=== PATIENT | female | born 1990 | race African-American/Black ===

== ENCOUNTER → 2020-12-30 15:24 | Outpatient (BNVA) | payer OTHER, SELFPAY | PROVIDERS: PCP Family Medicine; Referring Provider Family Medicine; Visit Provider Surgery ==

== ENCOUNTER → 2021-02-17 09:14 | Outpatient (BNVA) | payer OTHER, SELFPAY | PROVIDERS: PCP Family Medicine; Visit Provider Surgery ==

== ENCOUNTER → 2021-02-18 08:37 | Outpatient (BNVA) | payer OTHER, SELFPAY | PROVIDERS: PCP Family Medicine; Visit Provider Physician Assistant ==

== ENCOUNTER 2021-02-20 09:14 | Outpatient (REF) | payer OTHER, SELFPAY ==
--- NOTE | ~2021-02-20 | XR_ITS ---
EXAMINATION: XR CHEST CLINICAL INFORMATION: Obesity COMPARISON: None TECHNIQUE: Two-view chest FINDINGS: The cardiac and mediastinal contours are normal. There is a 4 mm nodule projecting over the left upper lobe. This overlies the left anterior second rib and could represent a bone island in the rib as well. The lungs are otherwise clear. There is no pleural effusion or pneumothorax. Bony structures are unremarkable. XR/XR chest 2V IMPRESSION: Question small 4 mm left upper lobe nodule.
--- NOTE | 2021-02-20 09:32 | ECG_ITS ---
Test Reason : E66.9 Blood Pressure : / mmHG Vent. Rate : 094 BPM Atrial Rate : 094 BPM P-R Int : 146 ms QRS Dur : 084 ms QT Int : 358 ms P-R-T Axes : 047 036 038 degrees QTc Int : 447 ms Normal sinus rhythm Normal ECG No previous ECGs available Referred By: Marco Antonio Chowdhury Electronically Signed By:LANCE ESPINOZA
[2021-02-20 09:36] LABS: MANUAL DIFF FLAG NO
[2021-02-20 10:43] LABS: Basophils Percent Auto 0.4 % (0-2); Eosinophils Absolute Auto 0.1 X10*3/uL (0.0-0.4); Eosinophils Percent Auto 1.7 % (0-4); Hematocrit 38.4 % (37-47); Hemoglobin 12.7 g/dl (12.0-16.0); Imm Gran Abs Auto 0.03 X10*3/uL (0.00-0.03); Imm Gran Pct Auto 0.4 % (0.0-0.4); Lymphocytes Absolute Auto 3.1 X10*3/uL (1.2-4.9); Lymphocytes Percent Auto 45.5 % (20-40); Mean Corpuscular HGB Conc 33.1 g/dl (31.0-35.0); Mean Corpuscular Volume 84.6 fL (80-98); Monocytes Absolute Auto 0.3 X10*3/uL (0.1-1.2); Monocytes Percent Auto 4.9 % (2-11); Neutrophils Absolute Auto 3.2 X10*3/uL (2.0-8.3); Neutrophils Percent Auto 47.1 % (45-73); Platelet Count 340 X10*3/uL (160-400); Red Blood Count 4.54 X10*6/uL (4.20-5.50); Red Cell Distribution Width 12.8 % (11.0-16.0); White Blood Count 6.9 X10*3/uL (4.8-10.8)
[2021-02-20 11:00] LABS: Estimated Average Glucose 108 mg/dL; Hemoglobin A1c % 5.4 %
[2021-02-20 11:09] LABS: Alanine Aminotransferase 25 U/L (0-31); Albumin Level 4.2 g/dL (3.5-5.0); Alkaline Phosphatase 60 U/L (39-117); Anion Gap 11 (12-20); Aspartate Amino Transferase 18 U/L (5-31); Bilirubin Total 0.5 mg/dL (0.0-1.0); Blood Urea Nitrogen 17 mg/dL (9-16); C Reactive Protein 2.62 mg/dL (< or = 0.50); Calcium 9.6 mg/dL (8.4-10.2); Carbon Dioxide 27 mmol/L (22-29); Chloride 106 mmol/L (96-108); Cholesterol 248 mg/dL; Estimated Glomerular Filt Rate > 60; Glucose Random 110 mg/dL (60-115); HDL Cholesterol 69 mg/dL; Iron 54 mcg/dL (30-160); LDL Cholesterol Calculated 165 mg/dl; Percent Iron Saturation 14 % (15-50); Potassium 4.3 mmol/L (3.3-5.1); Sodium 140 mmol/L (135-145); Total Iron Binding Capacity 389 mcg/dL (228-428); Total Protein 7.8 g/dL (6.5-8.0); Triglycerides 74 mg/dL; Unsaturated Iron Binding 335 ug/dL
[2021-02-20 11:15] LABS: Ferritin 57 ng/mL (10-122); TSH reflex Free T4 0.62 uIU/mL (0.32-4.0); Vitamin D 25-OH Total 22.6 ng/mL (>30)
[2021-02-20 11:26] LABS: Folate 13.8 ng/mL (> or = 4.0); Vitamin B12 330 pg/mL (200-900)
[2021-02-20 11:45] LABS: Insulin 22 uU/mL (2-29)
[2021-02-21 12:50] LABS: Calcium (PTHI) 9.6 mg/dL (8.6-10.2); PTHI 69 pg/mL (14-64)
[2021-02-21 13:34] LABS: H Pylori Breath Test Negative (Negative)
[2021-02-23 15:41] LABS: Zinc 69 mcg/dL (60-130)
[2021-02-26 04:32] LABS: Vitamin A 46 mcg/dL (38-98)
[2021-02-26 12:56] LABS: Vitamin B1 22 nmol/L (8-30)
== END 2021-02-20 09:15 | disposition home or self-care (01) ==
LOC: HO.XRAY 09:14
PROVIDERS: PCP Family Medicine; Visit Provider Surgery
DX: E66.9 Obesity, unspecified (principal); Z68.39 Body mass index [BMI] 39.0-39.9, adult; R73.03 Prediabetes
CPT/HCPCS: 36415; 71046; 80053; 80061; 82306; 82607; 82728; 82746; 83013; 83036; 83525; 83540; 83970; 84425; 84443; 84590; 84630; 85025; 86140; 93005

== ENCOUNTER → 2021-03-07 16:11 | Outpatient (BNVA) | payer OTHER, SELFPAY | PROVIDERS: PCP Family Medicine; Referring Provider Family Medicine; Visit Provider Physician Assistant Surgical ==

== ENCOUNTER → 2021-03-12 08:07 | Outpatient (BNVA) | payer OTHER, SELFPAY | PROVIDERS: PCP Family Medicine; Visit Provider Surgery ==

== ENCOUNTER → 2021-03-14 08:21 | Outpatient (BNVA) | payer OTHER, SELFPAY | PROVIDERS: PCP Family Medicine; Visit Provider Dietitian, Registered | DX: E66.9 Obesity, unspecified (principal); Z68.39 Body mass index [BMI] 39.0-39.9, adult | CPT/HCPCS: 97802 ==

== ENCOUNTER → 2021-03-19 15:53 | Outpatient (BNVA) | payer OTHER, SELFPAY | PROVIDERS: PCP Family Medicine; Visit Provider Physician Assistant ==

== ENCOUNTER 2021-03-25 09:23 | Outpatient (REF) | payer OTHER, SELFPAY ==
--- NOTE | ~2021-03-25 | CT_ITS ---
EXAMINATION: CT CHEST WITH CONTRAST CLINICAL INFORMATION: Follow-up pulmonary nodule COMPARISON: Previous chest x-ray 02/20/2021 TECHNIQUE: Multidetector volumetric CT imaging of the chest was obtained after the administration of 65 mL of Omnipaque 350 intravenous contrast without immediate adverse reactions. Axial MIP volume rendering provided. Sagittal and coronal reformatted images were obtained. This CT examination was performed using dose optimization techniques as appropriate, variously including the following: *Automated exposure control *Adjustment of mA and/or kV according to patient size (this includes techniques or standardized protocols for targeted exams where dose is matched to indication/reason for exam; i.e. extremities or head) *Use of iterative reconstruction technique DLP: 321 mGy-cm FINDINGS: EMERGENCY ROOM REGISTERED NURSE: Unremarkable LUNGS: The lungs are clear. No pulmonary nodule is seen. MEDIASTINUM: The mediastinum is normal. PLEURA: There is no pleural effusion. No pleural mass or thickening. AXILLA: No lymphadenopathy. UPPER ABDOMEN: The liver is slightly low in attenuation suggestive of fatty infiltration. OSSEOUS STRUCTURES: Unremarkable. CT/CT chest w con IMPRESSION: No pulmonary nodule seen. Mild fatty infiltration of the liver.
[2021-03-25] MEDS: iohexoL 350 MG/ML 100 ML INFUS..BTL IV (11:03)
== END 2021-03-25 09:24 | disposition home or self-care (01) ==
LOC: HO.CT 09:23
PROVIDERS: Absent Provider Physician Assistant Surgical; PCP Family Medicine; Visit Provider Surgery
DX: R91.1 Solitary pulmonary nodule (principal)
CPT/HCPCS: 71260; Q9967

== ENCOUNTER 2021-04-02 09:37 | Outpatient (REF) | payer OTHER, SELFPAY ==
--- NOTE | ~2021-04-02 | US_ITS ---
EXAMINATION: US COMPLETE ABDOMEN WITH LIVER ELASTOGRAPHY CLINICAL INFORMATION: Obesity. COMPARISON: None. TECHNIQUE: Real-time imaging of the abdominal viscera. Noninvasive ultrasound liver fibrosis assessment is performed using Taylor ElastPQ point quantification shear wave elastography (pSWE) with a C5-2 MHz transducer. Multiple elastography samples are obtained. FINDINGS: PANCREAS: Normal. The visualized pancreatic head and body are normal in appearance. The remainder of the pancreas is obscured from visualization by the overlying bowel gas. ABDOMINAL AORTA: The proximal, middle, and distal aortic segments are normal in caliber. INFERIOR VENA CAVA: Visualized portions are normal. LIVER: The liver demonstrates normal size, contour and echogenicity. No focal lesion or intrahepatic biliary duct dilatation. The right lobe measures 17.0 cm in length. The left lobe measures 11.2 cm in length. Portal flow is hepatopetal. Shear wave liver elastography median stiffness is 1.27 m/s (reference: normal median stiffness is 1.3 m/s or less). IQR/median stiffness to assess sampling precision is 0.06 (reference: good quality data set is IQR/median stiffness of 0.15 or less). GALLBLADDER: Normal. The gallbladder is physiologically distended without evidence of stones, sludge, polyps, wall thickening or pericholecystic fluid. COMMON BILE DUCT: Normal in caliber measuring 0.38 cm in diameter. RIGHT KIDNEY: Normal. No hydronephrosis. No renal calculi or focal parenchymal lesions. The kidney measures 10.1 cm in maximum dimension. LEFT KIDNEY: Normal. No hydronephrosis. No renal calculi or focal parenchymal lesions. The kidney measures 10.7 cm in maximum dimension. SPLEEN: Normal. The spleen measures 10.1 cm in maximum dimension. FREE FLUID: None. US/US abdomen comp w elastography IMPRESSION: 1. Unremarkable complete abdomen ultrasound. 2. Liver elastography: Median liver stiffness 1.27 m/s. High probably normal. REFERENCE: Society of Radiologists in Ultrasound Liver Stiffness Thresholds (2020): LIVER STIFFNESS THRESHOLDS: *Liver Stiffness equal or less than 1.3 m/s: High probability of being normal. *Liver Stiffness less than 1.7 m/s: In the absence of other known clinical signs, rules out compensated advanced chronic liver disease. *Liver Stiffness 1.7-2.1 m/s: Suggestive of compensated advanced chronic liver disease but need further test for confirmation. *Liver Stiffness over 2.1 m/s: Rules in compensated advanced chronic liver disease. *Liver Stiffness over 2.4 m/s: Suggestive of clinically significant portal hypertension. QUALITY OF DATA SET: *IQR/Median value equal or less than 0.15 implies a quality data set. *IQR/Median value over 0.15 implies a poor quality data set. SIGNIFICANT CHANGE FROM PRIOR EXAM: Significant change if liver stiffness measurement is 10% or greater from prior exam. OTHER CONSIDERATIONS: The stage of liver fibrosis may be overestimated in the setting of acute hepatitis, liver inflammation, elevated liver function tests, hepatic vascular congestion, obstructive cholestasis, non-fasting state, and infiltrative diseases such as amyloidosis and lymphoma. In some patients with NAFLD, the liver stiffness thresholds for compensated advanced chronic liver disease may be lower. In causes other than viral hepatitis and NAFLD, liver stiffness thresholds are not well established.
--- NOTE | ~2021-04-02 | FL_ITS ---
EXAMINATION: FL UPPER GI AIR-CONTRAST STUDIES CLINICAL INFORMATION: Obesity. COMPARISON: None. TECHNIQUE: Routine upper GI air-contrast study was performed. FINDINGS: Following oral administration of thick barium and effervescent granules, there is normal propagation bolus from the oral cavity through the pharynx and esophagus and into the stomach without any evidence of obstruction, narrowing or stricture. On placing patient supine and prone lying, there is mild gastroesophageal reflux without hiatal hernia. The rest the visualized stomach, duodenal bulb and the sweep are normal. The mucosal pattern of the stomach and the duodenal sweep is normal. FLUOROSCOPY TIME: 1.9 minutes. DOSE AREA PRODUCT: 32.8 uGy-m2 (microgray-meter squared). FL/FL upper GI series IMPRESSION: Minimal gastroesophageal reflux without hiatal hernia. The rest of the upper GI exam is unremarkable.
== END 2021-04-02 09:38 | disposition home or self-care (01) ==
LOC: HO.XRAY 09:37
PROVIDERS: PCP Family Medicine; Visit Provider Surgery
DX: E66.9 Obesity, unspecified (principal); Z68.39 Body mass index [BMI] 39.0-39.9, adult; R73.03 Prediabetes
CPT/HCPCS: 74240; 76705; 76981

== ENCOUNTER → 2021-04-28 08:08 | Outpatient (BNVA) | payer OTHER, SELFPAY | PROVIDERS: PCP Family Medicine; Visit Provider Surgery ==

== ENCOUNTER → 2021-05-01 09:09 | Outpatient (BNVA) | payer OTHER, SELFPAY | PROVIDERS: PCP Family Medicine; Referring Provider Family Medicine; Visit Provider Physician Assistant ==

== ENCOUNTER → 2021-05-14 09:17 | Outpatient (BNVA) | payer OTHER, SELFPAY | PROVIDERS: PCP Family Medicine; Referring Provider Family Medicine; Visit Provider Physician Assistant Surgical ==

== ENCOUNTER → 2021-05-27 08:01 | Outpatient (BNVA) | payer OTHER, SELFPAY | PROVIDERS: PCP Family Medicine; Visit Provider Surgery ==

== ENCOUNTER → 2021-06-12 15:26 | Outpatient (BNVA) | payer OTHER, SELFPAY | PROVIDERS: PCP Family Medicine; Referring Provider Family Medicine; Visit Provider Physician Assistant ==

== ENCOUNTER → 2021-06-23 08:11 | Outpatient (BNVA) | payer OTHER, SELFPAY | PROVIDERS: PCP Family Medicine; Visit Provider Surgery ==

== ENCOUNTER → 2021-07-03 15:40 | Outpatient (BNVA) | payer OTHER, SELFPAY | PROVIDERS: PCP Family Medicine; Visit Provider Physician Assistant ==

== ENCOUNTER → 2021-07-18 09:58 | Outpatient (BNVA) | payer OTHER, SELFPAY | PROVIDERS: PCP Family Medicine; Visit Provider Physician Assistant Surgical ==

== ENCOUNTER → 2021-07-25 08:17 | Outpatient (BNVA) | payer OTHER, SELFPAY | PROVIDERS: PCP Family Medicine; Visit Provider Surgery ==

== ENCOUNTER → 2021-08-14 12:24 | Outpatient (BNVA) | payer OTHER, SELFPAY | PROVIDERS: PCP Family Medicine; Visit Provider Physician Assistant Surgical ==

== ENCOUNTER → 2021-08-14 12:24 | Outpatient (BNVA) | payer OTHER, SELFPAY | PROVIDERS: PCP Family Medicine; Visit Provider Physician Assistant Surgical | DX: Z13.89 Encounter for screening for other disorder (principal) ==

== ENCOUNTER → 2021-08-20 14:57 | Outpatient (BNVA) | payer OTHER, SELFPAY | PROVIDERS: PCP Family Medicine; Referring Provider Family Medicine; Visit Provider Surgery | DX: Z13.89 Encounter for screening for other disorder (principal) ==

== ENCOUNTER 2021-08-21 13:34 | Inpatient (IN) | payer OTHER, MEDICAID, SELFPAY ==
[2021-08-08 07:57] LABS: MANUAL DIFF FLAG NO
[2021-08-08 08:07] LABS: Basophils Percent Auto 0.4 % (0-2); Eosinophils Absolute Auto 0.1 X10*3/uL (0.0-0.4); Eosinophils Percent Auto 2.6 % (0-4); Hematocrit 39.2 % (37.0-47.0); Hemoglobin 12.6 g/dl (12.0-16.0); Imm Gran Abs Auto 0.02 X10*3/uL (0.00-0.03); Imm Gran Pct Auto 0.4 % (0.0-0.4); Lymphocytes Absolute Auto 2.2 X10*3/uL (1.2-4.9); Lymphocytes Percent Auto 42.6 % (20-40); Mean Corpuscular HGB Conc 32.1 g/dl (31.0-35.0); Mean Corpuscular Hemoglobin 27.9 pg (27.0-33.0); Mean Corpuscular Volume 86.7 fL (80.0-98.0); Mean Platelet Volume 9.5 fL (9.4-12.3); Monocytes Absolute Auto 0.4 X10*3/uL (0.1-1.2); Monocytes Percent Auto 8.3 % (2-11); Neutrophils Absolute Auto 2.3 x10*3/uL (2.0-8.3); Neutrophils Percent Auto 45.7 % (45-73); Platelet Count 292 X10*3/uL (160-400); Red Blood Count 4.52 X10*6/uL (4.20-5.50); Red Cell Distribution Width 12.3 % (11.0-16.0); White Blood Count 5.1 X10*3/uL (4.8-10.8)
[2021-08-08 08:12] LABS: INTERNATIONAL NORM RATIO 1.1 (0.9-1.1); Prothrombin Time 12.7 SEC (9.9-13.0)
[2021-08-08 08:15] LABS: Partial Thromboplastin Time 37.7 SEC (24.1-38.0)
[2021-08-08 08:33] LABS: Estimated Average Glucose 100 mg/dL; Hemoglobin A1c % 5.1 %
[2021-08-08 08:35] LABS: Alanine Aminotransferase 21 U/L (0-31); Albumin Level 4.1 g/dL (3.5-5.0); Alkaline Phosphatase 51 U/L (39-117); Anion Gap 14 (12-20); Aspartate Amino Transferase 18 U/L (5-31); Bilirubin Total 0.8 mg/dL (0.0-1.0); Blood Urea Nitrogen 10 mg/dL (9-16); C Reactive Protein 3.11 mg/dL (< or = 0.50); Calcium 9.6 mg/dL (8.4-10.2); Carbon Dioxide 25 mmol/L (22-29); Chloride 102 mmol/L (96-108); Cholesterol 224 mg/dL; Estimated Glomerular Filt Rate > 60; Glucose Random 95 mg/dL (60-115); HDL Cholesterol 62 mg/dL; LDL Cholesterol Calculated 145 mg/dl; Potassium 4.4 mmol/L (3.3-5.1); Sodium 137 mmol/L (135-145); Total Protein 7.7 g/dL (6.5-8.0); Triglycerides 89 mg/dL
[2021-08-08 09:00] LABS: TSH reflex Free T4 1.21 uIU/mL (0.32-4.0)
[2021-08-08 12:50] LABS: Insulin 14 uU/mL (2-29)
[2021-08-11 08:46] VITALS: BMI 35.4
--- NOTE | 2021-08-16 00:17 | MHC.SHP ---
Pre-Procedural Eval Section A Date of Service: 08/16/21 The patient is an INPATIENT: Yes The History & Physical has been completed within 30 days and I have reviewed it.: Yes Section B Chief Complaint: Obesity Relevant Family History (Specify if Yes): No Relevant Social History: None Present Medications: None Medical History: No relevant PMH History of Previous Operations: No relevant previous surgery Allergies: Allergies Allergy/AdvReac Type Severity Reaction Status Date / Time Seasonal Allergies Allergy Severe hives,itchy Verified 08/11/21 08:42 eys Review of Systems Sugical H&P ROS: Negative: Constitution, Cardiovascular, Respiratory, Neurological, Psychiatric, Hem-Onc, Allergic/Immunologic, Gastrointestinal, Genitourinary, Musculoskeletal, Integumentary, Endocrine and Eyes/Ears/Nose/Throat Exam Surgical H&P Exam: Normal: HEENT, Normal: Heart, Normal: Lungs, Normal: Extremities, Normal: Abdomen, Normal: Skin and Normal: Neurological Plan Diagnosis/Plan: Unchanged I have reviewed the history and physical and performed a pertinent physical examination on my patient. No changes have occurred unless specified.
--- NOTE | 2021-08-20 10:15 | P.CONAN_ITS ---
Documented by User: Laura Lucas NP 08/20/21 10:17 HPI - Anesthesia Eval Consult details Narrative: 30yo F for Gastrectomy Sleeve,EGD,poss diaphragmatic hernia,poss ventral hernia,poss open, PMFSH Active Problems Active Problems: All Active Problems (Updated 08/11/21 @ 08:45 by Nette Alston RN) Obesity (Acute) BMI 39.0-39.9,adult (Acute) Vitamin D deficiency (Acute) Vitamin B12 deficiency (Acute) Lung nodule (Acute) Adjustment disorder, unspecified (Acute) BMI 38.0-38.9,adult (Acute) BMI 37.0-37.9, adult (Acute) BMI 36.0-36.9,adult (Acute) Nausea (Acute) Asthma (Acute) PCOS (polycystic ovarian syndrome) (Acute) Prediabetes (Acute) Past Medical History Medical History (Updated 08/21/21 @ 12:53 by Marco Antonio Chowdhury MD) Asthma GERD (gastroesophageal reflux disease) History of injury of tendon PCOS (polycystic ovarian syndrome) Prediabetes Situational anxiety Wears contact lenses Family History Family History (Updated 02/17/21 @ 10:15 by Damaso Spears Kj) Mother No problems noted. Father Diabetes Hypertension Sister No problems noted. Sister No problems noted. Sister No problems noted. Sister Lupus Brother No problems noted. Son No problems noted. Daughter No problems noted. Surgical History Surgical History (Updated 08/21/21 @ 13:10 by NARGIS Grande) History of finger joint replacement History of mandibular surgery Social History Social History (Updated 02/17/21 @ 10:16 by Damaso Spears Kj) Are you a primary care information associate to a significant other at home: Yes (children aged 13,9,2 to help) Do you presently have visiting nurse or other home services: No Alcohol intake: never Patient Tobacco Use Status: Never used Tobacco Use of substances other than those prescribed or required for medical reasons: No Have you been hit, kicked, punched, or otherwise hurt by someone within the past year? If so, by whom?: No Are you DNR?: No Advance Directives: No Advance Directives Information Provided: No Advance Directives on File: No Recently lost weight without trying: No Patient : No FDLMP: 07/16/2021 : No Poor oral hygiene: No Meds Allergies Allergy/AdvReac Type Severity Reaction Status Date / Time Seasonal Allergies Allergy Severe hives,itchy Verified 08/11/21 08:42 eys Home Medications Medication Instructions Recorded Confirmed Last Taken Type multivitamin 1 tab PO DAILY 08/11/21 08/21/21 08/21/21 History Exam Exam Date and Time: August 20, 2021 1015 Height,Weight and Vital Signs: Height 5 ft 2 in Weight 87.997 kg Pertinent Lab Results Pertinent Lab Results: Laboratory Tests 08/08/21 08/08/21 08/08/21 07:55 07:55 07:55 WBC 5.1 RBC 4.52 Hgb 12.6 Hct 39.2 MCV 86.7 MCH 27.9 MCHC 32.1 RDW 12.3 Plt Count 292 MPV 9.5 Immature Gran % (Auto) 0.4 Neut % (Auto) 45.7 Lymph % (Auto) 42.6 H Jasper % (Auto) 8.3 Eos % (Auto) 2.6 Baso % (Auto) 0.4 Lymph # (Auto) 2.2 Jasper # (Auto) 0.4 Eos # (Auto) 0.1 Baso # (Auto) 0.0 Abs Immat Gran (auto) 0.02 Absolute Neuts (auto) 2.3 Absolute Nucleated RBC 0.000 Nucleated RBC % (auto) 0.0 PT 12.7 INR 1.1 APTT 37.7 Sodium 137 Potassium 4.4 Chloride 102 Carbon Dioxide 25 Anion Gap 14 BUN 10 Creatinine 0.79 Estim Creat Clear Calc TNP Estimated GFR > 60 Random Glucose 95 Estimat Average Glucose Hemoglobin A1c % Insulin Level 14 Calcium 9.6 Total Bilirubin 0.8 AST 18 ALT 21 Alkaline Phosphatase 51 C-Reactive Protein 3.11 H Total Protein 7.7 Albumin 4.1 Triglycerides 89 Cholesterol 224 LDL Cholesterol, Calc 145 HDL Cholesterol 62 TSH 1.21 Blood Type Antibody Screen 08/08/21 08/08/21 07:55 07:55 WBC RBC Hgb Hct MCV MCH MCHC RDW Plt Count MPV Immature Gran % (Auto) Neut % (Auto) Lymph % (Auto) Jasper % (Auto) Eos % (Auto) Baso % (Auto) Lymph # (Auto) Jasper # (Auto) Eos # (Auto) Baso # (Auto) Abs Immat Gran (auto) Absolute Neuts (auto) Absolute Nucleated RBC Nucleated RBC % (auto) PT INR APTT Sodium Potassium Chloride Carbon Dioxide Anion Gap BUN Creatinine Estim Creat Clear Calc Estimated GFR Random Glucose Estimat Average Glucose 100 Hemoglobin A1c % 5.1 Insulin Level Calcium Total Bilirubin AST ALT Alkaline Phosphatase C-Reactive Protein Total Protein Albumin Triglycerides Cholesterol LDL Cholesterol, Calc HDL Cholesterol TSH Blood Type A Positive Antibody Screen NEGATIVE Narrative Narrative: EKG 02/2021 Vent. Rate : 094 BPM ? ? Atrial Rate : 094 BPM ?? P-R Int : 146 ms? QRS Dur : 084 ms ? ? QT Int : 358 ms ? ? ? P-R-T Axes : 047 036 038 degrees ?? QTc Int : 447 ms ? Normal sinus rhythm Normal ECG No previous ECGs available Assessment and Plan Assessment Anesthesia Assessment: Chart Reviewed Documented by User: Carlos Limon MD 08/21/21 16:36 [facility] Past Medical History Medical History (Updated 08/21/21 @ 12:53 by Marco Antonio Chowdhury MD) Asthma GERD (gastroesophageal reflux disease) History of injury of tendon PCOS (polycystic ovarian syndrome) Prediabetes Situational anxiety Wears contact lenses Functional capacity: independent ambulation Family History Family History (Updated 02/17/21 @ 10:15 by VIKTOR Alvarez) Mother No problems noted. Father Diabetes Hypertension Sister No problems noted. Sister No problems noted. Sister No problems noted. Sister Lupus Brother No problems noted. Son No problems noted. Daughter No problems noted. Family history of problems with anesthesia: No Surgical History Surgical History (Updated 08/21/21 @ 13:10 by NARGIS Grande) History of finger joint replacement History of mandibular surgery History of Problems with Anesthesia: No Social History Social History (Updated 02/17/21 @ 10:16 by VIKTOR Alvarez) Are you a primary care information associate to a significant other at home: Yes (children aged 13,9,2 to help) Do you presently have visiting nurse or other home services: No Alcohol intake: never Patient Tobacco Use Status: Never used Tobacco Use of substances other than those prescribed or required for medical reasons: No Have you been hit, kicked, punched, or otherwise hurt by someone within the past year? If so, by whom?: No Are you DNR?: No Advance Directives: No Advance Directives Information Provided: No Advance Directives on File: No Recently lost weight without trying: No Patient : No FDLMP: 07/16/2021 : No Poor oral hygiene: No Meds Allergies Allergy/AdvReac Type Severity Reaction Status Date / Time Seasonal Allergies Allergy Severe hives,itchy Verified 08/11/21 08:42 eys Home Medications Medication Instructions Recorded Confirmed Last Taken Type multivitamin 1 tab PO DAILY 08/11/21 08/21/21 08/21/21 History Exam Airway Mallampati Class: II TM Dist: >3cm Neck ROM: Full Loose/Missing/Broken Teeth: Yes (Implants ) Heart: rrr Lungs: bl breath sounds Assessment and Plan Assessment Anesthesia Assessment: Anesthesia Plan Discussed Final Anesthetic Review Family History of Problems with Anesthesia: No History of Problems with Anesthesia: No NPO: Yes ASA Class: III Final Preanesthetic Review: Meds/Allgs Chart Reviewed, Consent Obtained/Reviewed and Anes Risks/Benef Reviewed Patient Risk: Intermediate Procedure Risk: Intermediate Anesthetic Plan Anesthetic Plan: GA Disposition: Inp. Admit - Standard Bed
[2021-08-20 15:22] LABS: COVID-19 Test Negative (Negative); IDNOW Serial# 55D5AD1C
[2021-08-21] VITALS (13 sets, daily range): BP systolic 106–143; BP diastolic 60–91; PULSE 75–105; RESP 12–20; TEMP 36.2–36.9; O2SAT 96–100
[2021-08-21 08:46] LABS: UPreg QC Valid YES; Urine Pregnancy NEGATIVE (NEGATIVE)
[2021-08-21] MEDS: Lactated Ringers 1,000 ML 100 ML IVCONT ×3 (08:57→22:52)
--- NOTE | 2021-08-21 12:52 | PM.PNGS ---
Subjective Subjective Date of Service: 08/21/21 Interval history: Patient has mild incisional pain, but was able to ambulate and use the incentive spirometer. She is tolerating phase 1 bariatric diet Physical Exam Vital Signs: Vital Signs: Last Vital Signs Temp 98.5 F 08/21/21 08:34 Pulse 105 H 08/21/21 08:34 Resp 16 08/21/21 08:34 BP 106/65 08/21/21 08:34 Pulse Ox 96 08/21/21 08:34 BMI result Body Mass Index 35.4 GI: Inspection: Yes normal to inspection, Yes incision (clean, dry and intact) and Yes obesity Extrem: Right lower extremity: normal to inspection (no calf tenderness) Left lower extremity: normal to inspection (no calf tenderness) Objective Data Active Medications Albuterol Sulfate (Albuterol Sulfate (0.083%) 2.5 Mg/3 Ml Vial.Neb) 2.5 mg INHALE ONCE PRN PRN Reason: Shortness of Breath/Wheezing Lactated Ringer's (Lr) 1,000 mls @ 100 mls/hr IVCONT .Q10H KHUSHI Last Admin: 08/21/21 08:57 Dose: 100 mls/hr Documented by: CLAIRE Labs CBC & Chem 7: 08/08/21 07:55 08/08/21 07:55 Labs: Laboratory Results - last 24 hr 08/20/21 08/21/21 Unknown 08:18 Urine Test NEGATIVE COVID-19 (KRISTIE) Negative COVID-19 Clin Com See Note Progress Note: A&P Assessment and plan (1) Obesity: Status: Acute Assessment and Plan: s/p laparoscopic sleeve gastrectomy and gastropexy Doing well Check am labs. If OK, will discharge home? (2) BMI 36.0-36.9,adult: Status: Acute (3) GERD (gastroesophageal reflux disease): Status: Acute (4) PCOS (polycystic ovarian syndrome): Status: Acute (5) Prediabetes: Status: Acute (6) Asthma: Status: Acute (7) Status post sleeve gastrectomy: Status: Acute Fall Risk Details Current Medications: Current Medications Albuterol Sulfate (Albuterol Sulfate (0.083%) 2.5 Mg/3 Ml Vial.Neb) 2.5 mg INHALE ONCE PRN PRN Reason: Shortness of Breath/Wheezing Lactated Ringer's (Lr) 1,000 mls @ 100 mls/hr IVCONT .Q10H KHUSHI Last Admin: 08/21/21 08:57 Dose: 100 mls/hr Documented by: Time Spent With Patient Time: Total time spent is greater than 50% in coordination of care (as documented) at patient's floor/unit and/or counseling patient: Quality Stroke Does the patient have a stroke diagnosis?: No VTE Prior VTE?: No VTE Risk Level:: Surgical - moderate VTE Device Contraindication: N/A - Device Ordered VTE Drug Contraindication: Treatment Not Indicated
--- NOTE | 2021-08-21 12:55 | PM.OP ---
Brief Operative Note Date of Service: 08/21/21 Pre-op diagnosis: Severe Obesity with comorbidities (see below) Post-op diagnosis: same Procedure: INITIAL PATIENT BMI ON PRESENTATION AT OUR OFFICE: 39.5 kg/m2 LAST BMI BEFORE SURGERY: 36.4 kg/m2 COMORBIDITIES: asthma, prediabetes, PCOS, GERD ?The patient presented to the Weight Management Program with significant obesity that was negatively impacting the patient's comorbidities as listed above.? The program is a phased program with a special focus on preoperative medical weight management to promote substantial weight loss and prepare the patients for the second phase of the program: bariatric surgery. The patient participated in an intensive weekly lifestyle ?intervention and exercise program during which the patient ?has lost between the initial office visit and the last preoperative visit 19.4lbs, or 9.13% of initial actual body weight. It was deemed appropriate for the patient to now have bariatric surgery. In light of the current Covid-19 pandemic and the well documented strong association of obesity and increased risk of worse outcomes if infected with Covid-19 (REFERENCES:https://pubmed.ncbi.nlm.nih.gov/41484398/,?https://pubmed.ncbi.nlm.nih.gov/00439292/), any delay in undergoing bariatric surgery may lead to the patient's worsening health condition and increased?risk of more severe Covid-19 disease if infected. In addition a recent?study from [facility] published in [facility] on 05/12/2021 ([email or web address]) found that, among patients with obesity, substantial weight loss achieved with surgery was associated with improved outcomes of COVID-19 infection. The findings suggest that obesity can be a modifiable risk factor for the severity of COVID-19 infection. In addition, the patient met the BMI-criteria for bariatric surgery based on the BMI on initial presentation. The patient should not be penalized for achieving such weight loss because ?it is not sustainable long-term without surgical intervention and it was achieved in preparation for bariatric surgery ?under my direction and based on my published research ([email or web address] and?[email or web address].soard.org/article/[email or web address]-X/pdf) ?that a 10% preoperative weight loss improves long-term weight loss after surgery and reduces perioperative complications.? Insurance carriers such as [facility] have endorsed my recommendations ?and have included in their policies criteria to include a 10% preoperative weight loss requirement. PROCEDURE: Esophago-gastroscopy, laparoscopic sleeve gastrectomy and laparoscopic gastropexy INDICATIONS: This is a 30 year-old female who was electively scheduled for laparoscopic, possibly open sleeve gastrectomy. The risks and complications of the procedure were discussed with the patient in advance, particularly the possibility of ; pulmonary embolism; staple line leak; bleeding; GERD; cardiac, pulmonary, or renal complications; as well as long-term problems such as insufficient weight loss, vitamin deficiency, strictures, or ulcers. The patient understood all the risks, and was in agreement to proceed with surgery. DESCRIPTION OF PROCEDURE: After informed consent was obtained from the patient, the patient was given preoperative antibiotics, and was transferred to the operating room. After successful induction of general anesthesia, pneumatic compression devices were placed on both lower extremities. An upper endoscopy was performed next. The oropharynx and esophagus appeared to be within normal limits. There was no diaphragmatic hernia present consistent with the findings of the preoperative upper GI. The stomach was entered. Then after all fluid and air were suctioned and the stomach was fully decompressed, the scope was withdrawn and secured in the mid esophagus. The patient was then prepped and draped in the usual sterile manner, and abdominal access was established at the right upper quadrant with the Katlyn technique. A 12 mm blunt port was inserted, and the abdomen was insufflated with CO2 to a pressure of 15 mmHg. Under direct visualization, additional ports were placed, specifically two 5 mm Versi-step ports to the left upper quadrant, and a 5 mm Versi-Step port to the right upper quadrant. 1% lidocaine plain was used to infiltrate all port sites as well as all fascia defects. Following that, the patient was placed in a steep reverse Trendelenburg position. An additional 5 mm port was placed to the right flank for the Mediflex retractor that was used to retract the left lobe of the liver. The gastro-esophageal fat pad was opened with the ultrasonic device (Thunderbeat, Olympus) and the anterior esophagus and hiatus were exposed. The angle of His was opened with the ultrasonic device the fundus of the stomach from any diaphragmatic and splenic attachments. I then opened the gastrocolic ligament between the transverse colon and the greater curvature of the stomach with the ultrasonic device to enter the lesser sac and facilitate the ligation of the short gastric vessels. I started at a mid-point along the greater curvature and using the Thunderbeat, all short gastric vessels were divided all the way to the angle of His until the left norberto was completely dissected at its entirety. I then divided the gastro-colic ligament distally to a distance of about 3-4 cm proximal to the pylorus. The stomach was then divided transversely with one Endo LAM-45 purple, two LAM-45 orange loads and three LAM-60 articulating orange loads using the AEON stapler and loads. Every effort was made that the gastric sleeve had a tubular shape and an even caliber throughout. Once the sleeve resection was completed, the staple line of the gastric sleeve was reinforced with Hemoclips. The resected stomach was retrieved without difficulty from the Katlyn port. A gastropexy was then performed in order to prevent postoperative GERD and partial gastric volvulus. Several interrupted 2.0 Surgidac sutures were placed between the sleeve's staple line and the previously divided greater omentum and gastro-colic ligament using the Endo-Stitch device. ?An upper endoscopy was performed. There was no narrowing at the GE junction. The scope was easily advanced all the way to the pylorus which was clearly visualized. There was no narrowing anywhere and the sleeve's caliber was even throughout. The sleeve's staple line was inspected and there was no evidence of ischemia, bleeding or dehiscence. At that point the gastroscope was withdrawn from the patient?s mouth while we were decompressing the bowel and the stomach from any remaining air. I looked into the lesser sac to see how the sleeve was situating and it was situating well. There was no bleeding from the staple line, spleen, or short gastric vessels. The Mediflex retractor was removed, and the undersurface of the liver was inspected and there was no bleeding. The patient was placed in supine position. I closed the fascial defect of the 12 mm port site with a figure of eight #1 Polysorb suture. Then 100 cc 0.25 % Marcaine plain with 10 mg of Dexamethasone were used to infiltrate the fascial closure as well as all skin incisions. At this point, the abdomen was deflated, all ports were removed under direct vision, and no bleeding was noted from any of the port sites. The skin incisions were irrigated with saline and were closed with 4-0 absorbable monofilament sutures. Steri-Strips and OpSites were used to cover all incisions. The patient was extubated and was transferred in stable condition to the recovery room for further care. I was present and performed all galloway parts of the procedure. Erickson was the medical assistant secretary. There were no residents to assist with this case. Levi Chowdhury MD, PhD, FACS Surgeon: Marco Antonio Chowdhury MD Anesthesia: GETA, local and other (TAP and Zynrelef) Was an Crepe Maker used for this Procedure?: Yes Crepe Maker: Naldo Erickson Estimated blood loss (mL): 10 IV fluids (mL): 2,000 Urine output (mL): 0 (No Basurto to record) Pathology: other (Stomach) Condition: stable Disposition: PACU
--- NOTE | 2021-08-21 13:13 | PM.DS ---
DS: Providers Provider Date of Service: 08/22/21 Primary care physician: Diana Douglass MD DS: Diagnosis Discharge Diagnosis (1) Obesity: Status: Acute (2) BMI 36.0-36.9,adult: Status: Acute (3) GERD (gastroesophageal reflux disease): Status: Acute (4) PCOS (polycystic ovarian syndrome): Status: Acute (5) Prediabetes: Status: Acute (6) Asthma: Status: Acute (7) Status post sleeve gastrectomy: Status: Acute DS: Summary Hospital Course Hospital Course: ADMITTING DIAGNOSIS: obesity, asthma, PCOS ? DISCHARGE DIAGNOSIS: same, s/p laparoscopic sleeve gastrectomy ? PAST SURGICAL HISTORY: mandible surgery, right 5th finger tendon surgery ? PROCEDURE: upper endoscopy, laparoscopic sleeve gastrectomy ? DISCHARGE SUMMARY: ? History of Present Illness: ? The patient is a?30?year-old woman with a BMI of?39.2?kg/m2 and associated co-morbidities as described above. The patient had extensive work-up,lost?16.9 lbs preoperatively and was electively scheduled for laparoscopic, possible open sleeve gastrectomy and gastropexy. Risks and complications of the surgery were discussed with the patient in advance, particularly the possibility of , pulmonary embolism, anastomotic leak, bleeding, bowel injury, GERD, cardiac, renal or pulmonary complications. The patient understood all the risks and was in agreement with the surgical plan. ? Hospital Course: ? The patient underwent an uneventful laparoscopic sleeve gastrectomy with gastropexy on the day of admission. Postoperatively, the patient was transferred to the surgical floor. The patient received IV Acetaminophen and IV dilaudid for pain control. Patient was started on bariatric phase 1 diet POD #0. On postoperative day one, the patient was feeling well without nausea, vomiting, fevers, or tachycardia. The patient had some mild incisional pain and the abdomen was soft. ? On the morning of postoperative day one, the patient was continued on 1 ounce of water or ice every half hour. During the day, the patient did fairly well, having some incisional pain, but able to ambulate adequately and to tolerate liquids well. ? Since the patient is doing well, we decided that the patient was ready to be discharged. The patient was given instructions to follow-up with me next week and to call my office for any fever over 101, persistent abdominal pain, nausea, vomiting, GERD, symptoms of DVT such as calf tenderness, or leg swelling, or pulmonary embolism such as chest pain or shortness of breath. The patient was also instructed to drink 40-60 ounces of liquids per day using the 1-ounce cups. The patient had been given prescriptions for Tylenol for pain, Zofran prn for nausea, and pantoprazole and carafate previously. The patient was encouraged to ambulate and use the incentive spirometer. The patient was allowed to shower, but no baths, and encouraged to stay active at home. All of these instructions were given to the patient personally. All questions were answered and the patient understood all instructions, the instructions were also given to the patient in print. Time Spent with Patient Time attestation: Total time spent providing and/or coordinating discharge services: Discharge coordination time: Less than 30 minutes Quality: Safe Use of Opioids Does Pt have an Active Cancer Diagnosis on the Problem List?: No Quality: Stroke Does the patient have a stroke diagnosis?: No Physical Exam Vital Signs: Vital Signs: Last Vital Signs Temp 98.5 F 08/21/21 08:34 Pulse 105 H 08/21/21 08:34 Resp 16 08/21/21 08:34 BP 106/65 08/21/21 08:34 Pulse Ox 96 08/21/21 08:34 BMI result Body Mass Index 35.4 DS: Data Data Completed and Pending Pending studies at discharge: Pending at discharge 08/21/21 12:28 Surgical [PTH] Routine Labs on day of discharge: Laboratory Results - last 24 hr 08/20/21 08/21/21 Unknown 08:18 Urine Test NEGATIVE COVID-19 (KRISTIE) Negative COVID-19 Clin Com See Note Discharge Plan Discharge Patient Disposition: Home, Self-Care Discharge Diagnosis: s/p laparoscopic sleeve gastrectomy Referrals: Diana Douglass MD [Primary Care Provider] - 1 Week Discharge Medications: Continued pantoprazole 40 mg tablet,delayed release (DR/EC) 40 mg PO DAILY Qty: 30 2RF sucralfate 100 mg/mL suspension 10 ml PO BID Qty: 400 2RF ondansetron HCl 4 mg tablet 4 mg PO Q12H Qty: 20 0RF Discontinued cholecalciferol (vitamin D3) 125 mcg (5,000 unit) capsule 125 mcg PO DAILY Qty: 30 2RF mecobalamin (vitamin B12) 1,000 mcg tablet,disintegrating 1,000 mcg sublingual DAILY Qty: 30 2RF Rx Instructions: place tablet under tongue and allow to dissolve for at least30 secs before swallowing polyethylene glycol 3350 [Miralax] 17 gram powder in packet 17 g PO DAILY Qty: 14 0RF Rx Instructions: Mix each packet with 8oz of water and do 7 packets on 08/19/21 and another 7 packets on 08/20/21 multivitamin Tablet 1 tab PO DAILY 0RF Discharge Orders: Discharge Order (Routine); Ordered 08/22/21 Ordered By: Naldo Erickson Diet: other Activity on Discharge: No heavy lifting Stand Alone Forms: Patient Portal Discharge page Care Plan Goals: weight loss Health Concerns: obesity Plan of Treatment: No tub baths, sex or returning to work until discussed at first post op appointment. No exercise, alcohol, tobacco or illegal drug use. Continue to use incentive spirometer hourly while awake. Walk in home for 5- 10 minutes every 2 hours during the first week. Follow all instructions in the bariatric handbook and call with any questions.Discharge Instructions 1. Please call your doctor or come back to the emergency room should any new symptoms arise. 2. You will receive a courtesy call from [facility] 24-48 hours after discharge. 3. Activity: abstain from alcohol, practice limited stair climbing, no bending, no driving, no exercise, no illicit substances, no lifting, no sex, no tub bath, no work. 4. Diet: continue as discussed with Dr. Chowdhury. 5. Dressing Change/Wound Care: Your incision is covered by clear bandages and guaze underneath. If the area is tender, you may apply an ice pack for short intervals (no more than 20 minutes on, followed by at least 20 minutes off). Do not apply heat. Do not use creams, lotions, or topical antibiotics unless instructed to do so by your surgeon. These can cause infection or allergic reaction. 6. Call your doctor if: - Your temperature exceeds 101.5 F - You experience excessive pain or swelling - You have an unexpected reaction to medication - You have excessive bleeding - You experience continued vomiting/nausea - Your incision begins to separate - Your incision shows signs of infection such as increased redness, swelling, excessive pain, heat, or drainage (light blood or clear fluid is normal) 7. General instructions: No lifting greater than 5 lbs for the next 4 weeks[address] within 24 hours of taking narcotic pain medications. If you do not move your bowels in the next 2 days, please take milk of magnesia over the counter. Please follow the post op diet and do not advance your diet until you are seen in the office in about 2 weeks. Please walk around your home every hour or two to prevent blood clots from forming in your legs. You do not need to wake from sleeping to walk. Please sleep in a bed or couch to prevent kinking at the hips and knees. Please take your incentive spirometer (your lung expressive music therapist) home with you and use it for the next few days to prevent pneumonias. You may shower, no hot tubs, baths or swimming pools. Please call the office with any questions or concerns such as increasing abdominal pain, fever, chills, shortness of breath, chest pain, leg pain or swelling, or redness or drainage from your incisions. Please stay on stage 3 diet which includes sugar free clear liquids such as ice pops and jello and broth and crystal light. Avoid all carbonation. Please drink 3 protein shakes with at least 25-30 grams of protein daily or 3 of the Celebrate 4:1 shakes which can be purchased in our office. The Celebrate shakes have all of the bariatric vitamins you need if you consume these shakes. If you are drinking other protein shakes, you will need to purchase the Celebrate multivitamins and calcium that we provide in the office (they will provide all the vitamins you need). Please make sure you are consuming at least 40-60 ounces of water in addition to your 3 protein shakes daily. Do not hesitate to contact the office with any questions at . The patient's medical history has been reviewed and they are considered low risk for post op DVT and therefore DVT prophylaxis is not considered necessary. Travel after surgery was reviewed. The patient has not disclosed any travel plans during the first 30 days after surgery and they have been advised that within the first 30 days after surgery any bus, plane, train or car travel over 2 hours in duration is contraindicated due to the possibility of developing blood clots from immobility. Any travel, needs to include periods of ambulation of 10 minutes in duration every 2 hours.? The patient was instructed to discuss any plans for travel during this period with their bariatric surgeon. Assessment: stable s/p lapaorscopic sleeve gsatrectomy
[2021-08-21] MEDS: Famotidine/PF 20 MG/2 ML VIAL IVPUSH ×2 (13:38→21:47)
[2021-08-21 13:54] LABS: Hematocrit 38.8 % (37.0-47.0); Hemoglobin 12.7 g/dl (12.0-16.0)
[2021-08-21 14:06] LABS: Anion Gap 13 (12-20); Blood Urea Nitrogen 10 mg/dL (9-16); Carbon Dioxide 24 mmol/L (22-29); Chloride 104 mmol/L (96-108); Creatinine Clr Calc Pharmacy 100.8; Estimated Glomerular Filt Rate > 60; Glucose Random 91 mg/dL (60-115); Potassium 4.5 mmol/L (3.3-5.1); Sodium 136 mmol/L (135-145)
[2021-08-21] MEDS: ondansetron HCL 4 MG/2 ML VIAL IVPUSH (17:12)
[2021-08-21] MEDS: 0.9 % Sodium Chloride Flush 3 ML SYRINGE IVFLUSH ×2 (17:12→19:24)
[2021-08-21] MEDS: ceFAZolin Sodium/Dextrose,Iso 2 GM/50 ML PIGGYBACK IV (17:17)
[2021-08-21] MEDS: Metoclopramide HCl 10 MG/2 ML VIAL IVPUSH (19:24)
[2021-08-22] VITALS: BP 121/72; PULSE 79; RESP 18; TEMP 36.6; O2SAT 100
[2021-08-22] MEDS: ondansetron HCL 4 MG/2 ML VIAL IVPUSH (00:25)
[2021-08-22 03:35] VITALS: BP 122/76; PULSE 83; RESP 18; TEMP 36.4; O2SAT 98
[2021-08-22 05:55] LABS: MANUAL DIFF FLAG NO
[2021-08-22 05:58] LABS: Basophils Percent Auto 0.1 % (0-2); Hematocrit 37.5 % (37.0-47.0); Hemoglobin 12.2 g/dl (12.0-16.0); Imm Gran Abs Auto 0.03 X10*3/uL (0.00-0.03); Imm Gran Pct Auto 0.4 % (0.0-0.4); Lymphocytes Absolute Auto 1.5 X10*3/uL (1.2-4.9); Lymphocytes Percent Auto 20.1 % (20-40); Mean Corpuscular HGB Conc 32.5 g/dl (31.0-35.0); Mean Corpuscular Hemoglobin 27.5 pg (27.0-33.0); Mean Corpuscular Volume 84.7 fL (80.0-98.0); Mean Platelet Volume 10.1 fL (9.4-12.3); Monocytes Absolute Auto 0.2 X10*3/uL (0.1-1.2); Monocytes Percent Auto 2.7 % (2-11); Neutrophils Absolute Auto 5.7 x10*3/uL (2.0-8.3); Neutrophils Percent Auto 76.7 % (45-73); Platelet Count 318 X10*3/uL (160-400); Red Blood Count 4.43 X10*6/uL (4.20-5.50); Red Cell Distribution Width 11.6 % (11.0-16.0); White Blood Count 7.4 X10*3/uL (4.8-10.8)
[2021-08-22 06:20] LABS: Anion Gap 15 (12-20); Blood Urea Nitrogen 8 mg/dL (9-16); Calcium 9.2 mg/dL (8.4-10.2); Chloride 103 mmol/L (96-108); Creatinine Clr Calc Pharmacy 119.3; Estimated Glomerular Filt Rate > 60; Glucose Random 91 mg/dL (60-115); Potassium 4.5 mmol/L (3.3-5.1); Sodium 135 mmol/L (135-145)
[2021-08-22 06:25] LABS: Carbon Dioxide 22 mmol/L (22-29)
--- NOTE | 2021-08-22 07:39 | HO.POSTANES ---
Post Anesthesia Evaluation Post Anesthesia Evaluation Vital Signs: Vital Signs Temp Pulse Resp BP Pulse Ox 08/22/21 03:35 97.6 F 83 18 122/76 98 08/22/21 00:00 97.8 F 79 18 121/72 100 Anesthesia: General Endotracheal-GETA Mental Status: Awake Pain Control: Satisfactory Nausea/Vomiting: None Hydration: Adequate Anesthesia-Related Issues: No Anes. Related Issues
[2021-08-22 08:00] VITALS: BP 114/72; PULSE 77; RESP 18; TEMP 36.6; O2SAT 99
--- NOTE | 2021-08-22 08:53 | MHC.CM.PN ---
Addendum entered by Grecia Mixon 08/22/21 09:23: 08/22 IMM IN CHART Original Note: PATIENT LIVES WITH FAMILY SHE IS FULLY INDEPENDENT WITH ALL ADLS. NO DME OR VNA COVID VACCINATED. HER SPOUSE IS IN ROOM TO TRANSPORT. HCP REQUESTED. RN AWARE OF PLAN TO DC TODAY - SELF CARE
== END 2021-08-22 10:00 | disposition home or self-care (01) | DRG 621 ==
LOC: HO.SSSA 13:36 → HO.S3 14:56
PROVIDERS: Nurse Practitioner; Physician Assistant Surgical; Admitting Provider Surgery; PCP Family Medicine; Visit Provider Surgery
PROC: 0DB64Z3 Excision of Stomach, Percutaneous Endoscopic Approach, Vertical (ICD-10-PCS; CPT 43845; principal; 2021-08-21 10:10)
DX: E66.01 Morbid (severe) obesity due to excess calories (principal); E28.2 Polycystic ovarian syndrome; F41.8 Other specified anxiety disorders; J45.909 Unspecified asthma, uncomplicated; R73.03 Prediabetes; Z68.36 Body mass index [BMI] 36.0-36.9, adult; Z20.822 Contact with and (suspected) exposure to COVID-19; Z79.899 Other long term (current) drug therapy
CPT/HCPCS: 36415; 80048; 80053; 80061; 81025; 83036; 83525; 84443; 85014; 85018; 85025; 85610; 85730; 86140; 86850; 86900; 86901; 87635; 88307; 88342; A4649; C9399; J0131; J0690; J1100; J1170; J2250; J2370; J2405; J2765; J3010

== ENCOUNTER → 2021-08-26 14:05 | Outpatient (BNVA) | payer OTHER, MEDICAID, SELFPAY | PROVIDERS: PCP Family Medicine; Referring Provider Family Medicine; Visit Provider Surgery | DX: E66.9 Obesity, unspecified (principal); Z68.34 Body mass index [BMI] 34.0-34.9, adult | CPT/HCPCS: 99212 ==

== ENCOUNTER → 2021-09-18 08:10 | Outpatient (BNVA) | payer MEDICAID, SELFPAY | PROVIDERS: PCP Family Medicine; Visit Provider Dietitian, Registered | DX: E66.9 Obesity, unspecified (principal); Z68.32 Body mass index [BMI] 32.0-32.9, adult | CPT/HCPCS: 97803 ==

== ENCOUNTER → 2021-09-30 08:07 | Outpatient (BNVA) | payer OTHER, SELFPAY | PROVIDERS: PCP Family Medicine; Referring Provider Surgery; Visit Provider Dietitian, Registered | DX: E66.9 Obesity, unspecified (principal); Z68.31 Body mass index [BMI] 31.0-31.9, adult | CPT/HCPCS: 97803 ==

== ENCOUNTER → 2021-10-21 10:16 | Outpatient (BNVA) | payer OTHER, SELFPAY | PROVIDERS: PCP Family Medicine; Referring Provider Surgery; Visit Provider Dietitian, Registered | DX: E66.3 Overweight (principal); Z68.29 Body mass index [BMI] 29.0-29.9, adult; R73.03 Prediabetes; Z98.84 Bariatric surgery status | CPT/HCPCS: 97803 ==

== ENCOUNTER → 2021-11-20 13:00 | Outpatient (BNVA) | payer OTHER, SELFPAY | PROVIDERS: PCP Family Medicine; Referring Provider Surgery; Visit Provider Dietitian, Registered | DX: E66.3 Overweight (principal); Z68.28 Body mass index [BMI] 28.0-28.9, adult; Z98.84 Bariatric surgery status; Z71.3 Dietary counseling and surveillance | CPT/HCPCS: 97803 ==

== ENCOUNTER → 2021-12-22 09:50 | Outpatient (BNVA) | payer OTHER, SELFPAY | PROVIDERS: PCP Family Medicine; Referring Provider Surgery; Visit Provider Dietitian, Registered | DX: E66.3 Overweight (principal); Z68.27 Body mass index [BMI] 27.0-27.9, adult | CPT/HCPCS: 97803 ==

== ENCOUNTER → 2022-01-28 15:45 | Outpatient (BNVA) | payer OTHER, SELFPAY | PROVIDERS: PCP Family Medicine; Visit Provider Dietitian, Registered | DX: E66.3 Overweight (principal); Z68.26 Body mass index [BMI] 26.0-26.9, adult; Z98.84 Bariatric surgery status; Z71.3 Dietary counseling and surveillance | CPT/HCPCS: 97803 ==

== ENCOUNTER → 2022-02-18 15:19 | Outpatient (BNVA) | payer OTHER, SELFPAY | PROVIDERS: PCP Family Medicine; Referring Provider Dietitian, Registered; Visit Provider Physician Assistant Surgical | DX: E66.3 Overweight (principal); Z68.26 Body mass index [BMI] 26.0-26.9, adult; Z98.84 Bariatric surgery status | CPT/HCPCS: 99212 ==

== ENCOUNTER 2022-02-19 08:25 | Outpatient (REF) | payer OTHER, SELFPAY ==
[2022-02-19 08:44] LABS: MANUAL DIFF FLAG NO
[2022-02-19 09:31] LABS: Basophils Percent Auto 0.6 % (0-2); Eosinophils Absolute Auto 0.1 X10*3/uL (0.0-0.4); Eosinophils Percent Auto 2.8 % (0-4); Hematocrit 38.3 % (37.0-47.0); Hemoglobin 12.6 g/dl (12.0-16.0); Imm Gran Abs Auto 0.01 X10*3/uL (0.00-0.03); Imm Gran Pct Auto 0.2 % (0.0-0.4); Lymphocytes Absolute Auto 2.1 X10*3/uL (1.2-4.9); Mean Corpuscular HGB Conc 32.9 g/dl (31.0-35.0); Mean Corpuscular Hemoglobin 29.2 pg (27.0-33.0); Mean Corpuscular Volume 88.7 fL (80.0-98.0); Mean Platelet Volume 9.7 fL (9.4-12.3); Monocytes Absolute Auto 0.3 X10*3/uL (0.1-1.2); Monocytes Percent Auto 5.1 % (2-11); Neutrophils Absolute Auto 2.5 x10*3/uL (2.0-8.3); Neutrophils Percent Auto 49.3 % (45-73); Platelet Count 300 X10*3/uL (160-400); Red Blood Count 4.32 X10*6/uL (4.20-5.50); Red Cell Distribution Width 11.9 % (11.0-16.0); White Blood Count 5.1 X10*3/uL (4.8-10.8)
[2022-02-19 10:11] LABS: Estimated Average Glucose 88 mg/dL; Hemoglobin A1c % 4.7 %
[2022-02-19 10:13] LABS: Alanine Aminotransferase 15 U/L (0-31); Albumin Level 4.1 g/dL (3.5-5.0); Alkaline Phosphatase 56 U/L (39-117); Anion Gap 13 (12-20); Aspartate Amino Transferase 17 U/L (5-31); Bilirubin Total 0.6 mg/dL (0.0-1.0); Blood Urea Nitrogen 14 mg/dL (9-16); C Reactive Protein 0.55 mg/dL (< or = 0.50); Calcium 9.5 mg/dL (8.4-10.2); Carbon Dioxide 28 mmol/L (22-29); Chloride 104 mmol/L (96-108); Cholesterol 237 mg/dL; Estimated Glomerular Filt Rate > 60; Glucose Random 74 mg/dL (60-115); HDL Cholesterol 75 mg/dL; Iron 77 mcg/dL (30-160); LDL Cholesterol Calculated 150 mg/dl; Percent Iron Saturation 24 % (15-50); Potassium 4.7 mmol/L (3.3-5.1); Sodium 140 mmol/L (135-145); Total Iron Binding Capacity 327 mcg/dL (228-428); Total Protein 7.2 g/dL (6.5-8.0); Triglycerides 62 mg/dL; Unsaturated Iron Binding 250 ug/dL
[2022-02-19 10:43] LABS: Ferritin 66 ng/mL (10-122); TSH reflex Free T4 0.65 uIU/mL (0.32-4.0)
[2022-02-19 11:03] LABS: Folate 17.2 ng/mL (> or = 4.0); Vitamin B12 590 pg/mL (200-900)
[2022-02-19 11:23] LABS: Insulin 4 uU/mL (2-29)
[2022-02-20 13:22] LABS: Calcium (PTHI) 9.6 mg/dL (8.6-10.2); PTHI 74 pg/mL (16-77)
[2022-02-23 09:07] LABS: Vitamin B1 16 nmol/L (8-30)
[2022-02-24 06:16] LABS: Zinc 86 mcg/dL (60-130)
[2022-02-25 18:42] LABS: Vitamin A 51 mcg/dL (38-98)
== END 2022-02-19 08:26 | disposition home or self-care (01) ==
LOC: HO.LAB 08:25
PROVIDERS: PCP Family Medicine; Visit Provider Physician Assistant Surgical
DX: Z98.84 Bariatric surgery status (principal)
CPT/HCPCS: 36415; 80053; 80061; 82306; 82607; 82728; 82746; 83036; 83525; 83540; 83970; 84425; 84443; 84590; 84630; 85025; 86140

== ENCOUNTER → 2022-02-25 15:24 | Outpatient (BNVA) | payer OTHER, SELFPAY | PROVIDERS: PCP Family Medicine; Visit Provider Dietitian, Registered | DX: E66.3 Overweight (principal) | CPT/HCPCS: 97803 ==

== ENCOUNTER → 2022-04-21 16:28 | Outpatient (BNVA) | payer OTHER, SELFPAY | PROVIDERS: PCP Family Medicine; Visit Provider Dietitian, Registered | DX: E66.3 Overweight (principal); Z68.25 Body mass index [BMI] 25.0-25.9, adult; R73.03 Prediabetes; Z98.84 Bariatric surgery status; Z71.3 Dietary counseling and surveillance | CPT/HCPCS: 97803 ==

== ENCOUNTER 2022-06-21 10:23 | Emergency (ER) | payer OTHER, SELFPAY ==
--- NOTE | ~2022-06-21 | US_ITS ---
EXAMINATION: US FIRST TRIMESTER CLINICAL INFORMATION: Positive history of ectopic LMP: 05/15/2022 Beta-hCG: Unknown COMPARISON: None available. TECHNIQUE: Transabdominal imaging was performed. FINDINGS: UTERUS AND INTRAUTERINE GESTATIONAL SAC: Small fluid-filled cystic structure in the endometrium, this could be tiny gestational sac versus pseudogestational sac. CROWN-RUMP LENGTH (CRL) not visualized might be too early. YOLK SAC: Not found SUBCHORIONIC HEMORRHAGE: None OVARIES: Right: Normal Left: Cystic structure probably a follicle 1.5 x 1.3 x 0.7 cm. FREE FLUID: Small amount of free fluid. OTHER FINDINGS: None US/US OB pelvic and transvaginal IMPRESSION: 1. Small fluid-filled cystic structure in the endometrium could be an early gestational sac versus a pseudogestational sac 0.5 cm, of 5 weeks and 0 days. 2. Attention to follow-up recommended.
[2022-06-21 10:32] VITALS: BP 113/68; PULSE 16; RESP 16; TEMP 36.9; O2SAT 100; BMI 25.0
[2022-06-21 10:52] LABS: MANUAL DIFF FLAG NO
[2022-06-21 10:54] LABS: Appearance Urine Turbid; Basophils Percent Auto 0.5 % (0-2); Color Urine Yellow; Eosinophils Absolute Auto 0.1 X10*3/uL (0.0-0.4); Eosinophils Percent Auto 1.2 % (0-4); Glucose Urine UA Negative (Negative); Hematocrit 39.9 % (37.0-47.0); Hemoglobin 13.3 g/dl (12.0-16.0); Imm Gran Abs Auto 0.02 X10*3/uL (0.00-0.03); Imm Gran Pct Auto 0.3 % (0.0-0.4); Leukocyte Esterase Urine Trace (Negative); Lymphocytes Absolute Auto 2.7 X10*3/uL (1.2-4.9); Lymphocytes Percent Auto 46.8 % (20-40); Mean Corpuscular HGB Conc 33.3 g/dl (31.0-35.0); Mean Corpuscular Volume 87.1 fL (80.0-98.0); Mean Platelet Volume 9.6 fL (9.4-12.3); Monocytes Absolute Auto 0.3 X10*3/uL (0.1-1.2); Monocytes Percent Auto 5.4 % (2-11); Neutrophils Absolute Auto 2.6 x10*3/uL (2.0-8.3); Neutrophils Percent Auto 45.8 % (45-73); Nitrite Urine Negative (Negative); PH 7.5 (5.0-9.0); Platelet Count 266 X10*3/uL (160-400); Red Blood Count 4.58 X10*6/uL (4.20-5.50); Red Cell Distribution Width 11.6 % (11.0-16.0); UMIC TRIGGER UACC YES; Urine Blood Negative (Negative); Urine Ketones Negative (Negative); Urine Protein Negative (Neg-Trace); White Blood Count 5.7 X10*3/uL (4.8-10.8)
[2022-06-21 10:55] LABS: UPreg QC Valid YES; Urine Pregnancy POSITIVE (NEGATIVE)
[2022-06-21 10:59] LABS: Bacteria Urine None Seen (None Seen); Hyaline Casts Urine 0-2 /LPF (0-2); RBC Urine 0-2 /HPF (0-2); Squamous Epithelial Cell Urine 0-2 /HPF (0-2); WBC Urine 0-5 /HPF (0-5)
[2022-06-21 11:22] LABS: Anion Gap 14 (12-20); Blood Urea Nitrogen 13 mg/dL (9-16); Calcium 9.7 mg/dL (8.4-10.2); Carbon Dioxide 25 mmol/L (22-29); Chloride 103 mmol/L (96-108); Creatinine Clr Calc Pharmacy 90.5; Estimated Glomerular Filt Rate > 60; Glucose Random 73 mg/dL (60-115); Potassium 3.9 mmol/L (3.3-5.1); Sodium 138 mmol/L (135-145)
[2022-06-21 11:30] LABS: HCG Quantitative 468 mIU/mL
--- NOTE | 2022-06-21 11:59 | ED_ITS ---
HPI - General Adult General Chief complaint: General Medical Stated complaint: early ,cramps, hx of ectopic pregnancies Time Seen by Provider: 06/21/22 11:42 Source: patient Mode of arrival: ambulatory Limitations: no limitations History of Present Illness HPI narrative: 31 year old female [id number] presents to the ED with a one day history of mid lower abdominal cramping with spotting. She started with mid lower abdominal cramping around 1 am this morning, could not sleep. Noticed spotting on toilet p aper post urination. She reports nausea, no vomiting. No changes to bowel contents. Denies dysuria, frequency and urgency. No sick contacts. No chest pain, palpitations. The patient found out she was last week via home test. She has an OB appointment scheduled in two weeks. Was told to come here to be evaluated per OB. She reveals she had an ectopic last year, 2013 , and 2014 miscarriage. She has two living children 10 year old and 3 year old, which she carried full term, vaginal delivery, with no complications. MD complaint: Positive with abdominal cramping vaginal spotting Onset (ago): hour(s) Location: abdomen (mid-lower ) Severity: moderate Quality: other (cramping ) Pain Consistency: constant Relieving factors: none Exacerbating factors: none Treatments prior to arrival: none Related Data Home Medications Medication Instructions Recorded Confirmed No Known Home Meds 02/18/22 02/18/22 Allergies Allergy/AdvReac Type Severity Reaction Status Date / Time Seasonal Allergies Allergy Severe hives,itchy Verified 02/18/22 15:31 eys Review of Systems Review of Systems: Constitutional : No Weight loss, No Fever, No Chills, No Night Sweats, No Fatigue, No Malaise ENT/Mouth : No Hearing loss, No Ear Pain, No Nasal Congestion, No Sinus Pain, No Hoarseness, No sore throat, No Rhinorrhea, No Swallowing Difficulty Eyes: No Eye Pain, No Swelling, No Redness, No Foreign Body, No Discharge, No Vision Changes Cardiovascular : No Chest Pain, No SOB, No Dyspnea on Exertion, No Orthopnea, No Edema, No Palpitations Respiratory : No Cough, No Sputum, No Wheezing, No Smoke Exposure, No Dyspnea Gastrointestinal : + Nausea, + mid-lower abdominal pain. No Vomiting, No Diarrhea, No Constipation, No Hematochezia, No Melena Genitourinary : + spotting while . No Dysuria, No Urinary Frequency, No Hematuria, No Urinary Incontinence, No Urgency, No Flank Pain, No Urinary Flow Changes, No Hesitancy Musculoskeletal : No joint pain, No Myalgias, No Joint Swelling Skin : No Skin Lesions, No rash Neuro : No Weakness, No Numbness, No Paresthesias, No Loss of Consciousness, No Dizziness, No Headache Psych : No Anxiety/Panic, No Depression, No SI/HI/AH/VH, No Social Issues, Heme/Lymph: No Bruising, No Bleeding,No Lymphadenopathy Endocrine : No Polyuria, No Polydipsia, No Temperature Intolerance Yes all other systems are reviewed and are negative [facility] Past Medical History Attestation statement: The following information was validated with the patient. Source: old records reviewed and nursing notes reviewed Medical History Asthma BMI 36.0-36.9,adult BMI 37.0-37.9, adult BMI 39.0-39.9,adult GERD (gastroesophageal reflux disease) History of injury of tendon Nausea PCOS (polycystic ovarian syndrome) Prediabetes Situational anxiety Wears contact lenses Surgical History History of finger joint replacement History of mandibular surgery S/P laparoscopic sleeve gastrectomy Family History Family History Mother No problems noted. Father Diabetes Hypertension Sister No problems noted. Sister No problems noted. Sister No problems noted. Sister Lupus Brother No problems noted. Son No problems noted. Daughter No problems noted. 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 (children aged 13,9,2 to help) Do you presently have visiting nurse or other home services: No Alcohol intake: current Alcohol intake frequency: holidays/special occasions only Patient Tobacco Use Status: Never used Tobacco Smoked in Last 30 Days: No Use of substances other than those prescribed or required for medical reasons: No Advance Directives: No Advance Directives Information Provided: No Patient : Yes service: No Current occupational status: employed Physical Exam ED Vital Signs: Vital Signs - 24 hr 06/21/22 10:32 06/21/22 13:20 06/21/22 14:12 Temperature 98.5 F 97.5 F 98.1 F Pulse Rate 16 L 62 66 Respiratory Rate 16 14 16 Blood Pressure 113/68 106/71 100/60 Pulse Oximetry 100 100 100 Oxygen Delivery Method Room Air Room Air Room Air BMI result Body Mass Index 25.0 vital signs have been reviewed as normal and appeared to be correct. Blood pressure normal. Heart rate normal. Respiration rate normal. Temperature normal. Oxygen saturation normal. Appearance: Alert. Oriented X3. No acute distress. Head: Normal external exam. Normocephalic. Atraumatic. Eyes: PERRLA. EOMI. Conjunctiva and sclera normal. Eyelids normal. ENT: EAC normal. TM's Normal. Pharynx normal. Uvula midline. Moist mucous membranes. No trismus noted. No drooling noted. No muffled voice noted. Neck: Normal inspection. Neck supple. FROM. No adenopathy. Thyroid Normal. No meningeal signs. No neck mass noted. CVS: Normal heart rate and rhythm. Heart sound normal. No murmurs noted. Pulses normal throughout. Respiratory: No respiratory distress. Painless inspiration. Breath sounds normal. No wheezes/rales/rhonchi noted. Chest nontender. No accessory muscle usage noted or decreased air movement noted. Abdomen: Soft with suprapubic abdominal tenderness mild. Bowel sounds normal in all 4 quadrants. No distention noted. No organomegaly noted. No visible injury noted. : Supervised by Vijaya BARILLAS - Exam done by Skye MAYFIELD Normal external appearance of urethra. No lesions/lacerations or discharge or tenderness noted. Speculum exam normal appearance/palpation of vagina normal. No abnormal vaginal discharge noted. Otherwise no vaginal erythema. No foreign bodies noted. No vaginal laceration/lesions or active bleeding noted. No tissue present in vagina. No vaginal mass noted. No vaginal swelling noted. No vaginal tenderness noted. Normal appearance of cervix. Normal palpation of cervix. Cervical os is closed. No abnormal cervical discharge noted. No cervical lesion/mass. No Bartholin cyst noted. No cervical motion tenderness noted. Negative chandelier sign. Normal bimanual exam. Uterine size normal. Bladder normal to palpation. Uterine consistency normal. Normal cervical palpation. Uterine mobility normal. Uterine shape normal. Normal adnexa. Normal rectovaginal exam. Back: No CVA tenderness. Full range of motion noted. Skin: Skin warm and dry. Normal skin color. Normal skin turgor. No rashes/lesions/lacerations noted. Extremities: No lower extremity edema. Extremities exhibit normal range of motion. Extremities nontender. Neuro: Oriented X 3. No motor deficit. No sensory deficit. Reflexes normal. Course Course Course Narrative: 31 year old female [id number] presents to the ED with a one day history of mid lower abdominal cramping with spotting. She started with mide lower abdominal cramping around 1 am this morning, could not sleep. Noticed spotting on toilet paper post urination. She reports nausea, no vomiting. No changes to bowel c ontents. Denies dysuria, frequency and urgency. No sick contacts. No chest pain, palpitations. The patient found out she was last week via home test. She has an OB appointment scheduled in two weeks. Was told to come here to be evaluated per OB. She reveals she had an ectopic last year, 2013 , and 2015 miscarriage. She has two living children 10 year old and 3 year old, which she carried full term, vaginal delivery, with no complications The patient is a 31 year old female with a one day history of mid-lower abdominal pain and spotting noted on toilet paper. The patient is in no acute distress and not actively bleeding. Physical exam unremarkable. Speculum Exam Supervised by Vijaya BARILLAS - Exam done by Skye MAYFIELD Normal external appearance of urethra. No lesions/lacerations or discharge or tenderness noted. Speculum exam normal appearance/palpation of vagina normal. No abnormal vaginal discharge noted. Otherwise no vaginal erythema. No foreign bodies noted. No vaginal laceration/lesions or active bleeding noted. No tissue present in vagina. No vaginal mass noted. No vaginal swelling noted. No vaginal tenderness noted. Normal appearance of cervix. Normal palpation of cervix. Cervical os is closed. No abnormal cervical discharge noted. No cervical lesion/mass. No Bartholin cyst noted. Plan: Confirm -Labs -Imaging STD Testing Bacterial Vaginosis Testing Reevaluation(s) Reevaluation #1: CBC - Lymph 46.8 - all other values within normal range BMP - Total Bilirubin 1.1 - all other values within normal range serum quant 468 Patient negative for Trichomonas and yeast at this time. Patient negative for gonorrhea chlamydia. Patient is a positive for blood type. UA - Trace Leukocyte Esterase, Positive Urine Test - all else negative Awaiting imaging at this time Time: 10:43 Reevaluation #2: Pelvic Imaging - US/US OB pelvic and transvaginal IMPRESSION: 1. Small fluid-filled cystic structure in the endometrium could be an early gestational sac versus a pseudogestational sac 0.5 cm, of 5 weeks and 0 days. ? 2. Attention to follow-up recommended. Therefore I discussed this case with Dr. Joshua and he recommended Check urine culture, BV panel and Trichomonas and treat accordingly. Given the patient history of ectopic , there is a risk of recurrence rate, SAB/ectopic warnings, instructions to be given to patient to come back to the emergency room with pelvic pain and or bleeding, hCG quantitative in 48 hours, follow-up in our office in 2 days. Therefore serum quant was placed in the computer for the patient and she is instructed to call tomorrow morning to make a follow-up appointment by Wednesday for repeat ultrasound and further evaluation treatment with Dr. Josiane BEASLEY. Patient understands and is agreeable to this plan. Time: 13:14 Medications Administered Discontinued Medications Generic Name Dose Route Start Last Admin Trade Name Kiesha PRN Reason Stop Dose Admin Acetaminophen 975 mg 06/21/22 12:02 06/21/22 13:15 Acetaminophen 325 Mg Tablet PO 06/21/22 12:03 975 mg ONCE ONE Administration Ondansetron HCl 4 mg 06/21/22 12:02 06/21/22 13:15 Ondansetron Odt 4 Mg Tab.Rapdis TRANSLINGU 06/21/22 12:03 4 mg ONCE ONE Administration Medical Decision Making Lab Data [facility] Lab Attestation statement: I reviewed the patient's lab results. 06/21/22 10:43 06/21/22 10:43 Labs: Lab Results 06/21/22 06/21/22 06/21/22 Range/Units 10:43 10:43 10:43 WBC 5.7 (4.8-10.8) X10*3/uL RBC 4.58 (4.20-5.50) X10*6/uL Hgb 13.3 (12.0-16.0) g/dl Hct 39.9 (37.0-47.0) % MCV 87.1 (80.0-98.0) fL MCH 29.0 (27.0-33.0) pg MCHC 33.3 (31.0-35.0) g/dl RDW 11.6 (11.0-16.0) % Plt Count 266 (160-400) X10*3/uL MPV 9.6 (9.4-12.3) fL Immature Gran % (Auto) 0.3 (0.0-0.4) % Neut % (Auto) 45.8 (45-73) % Lymph % (Auto) 46.8 H (20-40) % [place] % (Auto) 5.4 (2-11) % Eos % (Auto) 1.2 (0-4) % Baso % (Auto) 0.5 (0-2) % Lymph # (Auto) 2.7 (1.2-4.9) X10*3/uL [place] # (Auto) 0.3 (0.1-1.2) X10*3/uL Eos # (Auto) 0.1 (0.0-0.4) X10*3/uL Baso # (Auto) 0.0 (0.0-0.2) X10*3/uL Abs Immat Gran (auto) 0.02 (0.00-0.03) X10*3/uL Absolute Neuts (auto) 2.6 (2.0-8.3) x10*3/uL Absolute Nucleated RBC 0.000 (0.0-0.012) X10*3/uL Nucleated RBC % (auto) 0.0 (0.0-0.2) /100WBC Sodium 138 (135-145) mmol/L Potassium 3.9 (3.3-5.1) mmol/L Chloride 103 (96-108) mmol/L Carbon Dioxide 25 (22-29) mmol/L Anion Gap 14 (12-20) BUN 13 (9-16) mg/dL Creatinine 0.78 (0.5-1.4) mg/dL Estim Creat Clear Calc 90.5 Estimated GFR > 60 Random Glucose 73 (60-115) mg/dL Calcium 9.7 (8.4-10.2) mg/dL Magnesium 1.9 (1.6-2.6) mg/dL Total Bilirubin 1.1 H (0.0-1.0) mg/dL Direct Bilirubin 0.3 (0.0-0.5) mg/dL AST 17 (5-31) U/L ALT 15 (0-31) U/L Alkaline Phosphatase 49 (39-117) U/L Total Protein 7.4 (6.5-8.0) g/dL Albumin 4.1 (3.5-5.0) g/dL Lipase 26 (8-78) U/L Beta HCG, Quant 468 mIU/mL Urine Color Urine Appearance Urine pH (5.0-9.0) Ur Specific [place] (1.005-1.025) Urine Protein (Neg-Trace) mg/dL Urine Glucose (UA) (Negative) mg/dL Urine Ketones (Negative) mg/dL Urine Blood (Negative) Urine Nitrite (Negative) Ur Leukocyte Esterase (Negative) Urine RBC (0-2) /HPF Urine WBC (0-5) /HPF Ur Squamous Epith Cells (0-2) /HPF Urine Bacteria (None Seen) Hyaline Casts (0-2) /LPF Urine Test (NEGATIVE) Chlam trachomat DNA PCR (Not Detect.) Influenza Type A (PCR) (Negative) Influenza Type B (PCR) (Negative) N.gonorrhoeae DNA (PCR) (Not Detect.) RSV RNA Qual (PCR) (Negative) SARS-CoV-2 RNA (RT-PCR) (Negative) Blood Type 06/21/22 06/21/22 06/21/22 Range/Units 10:43 10:43 12:02 WBC (4.8-10.8) X10*3/uL RBC (4.20-5.50) X10*6/uL Hgb (12.0-16.0) g/dl Hct (37.0-47.0) % MCV (80.0-98.0) fL MCH (27.0-33.0) pg MCHC (31.0-35.0) g/dl RDW (11.0-16.0) % Plt Count (160-400) X10*3/uL MPV (9.4-12.3) fL Immature Gran % (Auto) (0.0-0.4) % Neut % (Auto) (45-73) % Lymph % (Auto) (20-40) % [place] % (Auto) (2-11) % Eos % (Auto) (0-4) % Baso % (Auto) (0-2) % Lymph # (Auto) (1.2-4.9) X10*3/uL [place] # (Auto) (0.1-1.2) X10*3/uL Eos # (Auto) (0.0-0.4) X10*3/uL Baso # (Auto) (0.0-0.2) X10*3/uL Abs Immat Gran (auto) (0.00-0.03) X10*3/uL Absolute Neuts (auto) (2.0-8.3) x10*3/uL Absolute Nucleated RBC (0.0-0.012) X10*3/uL Nucleated RBC % (auto) (0.0-0.2) /100WBC Sodium (135-145) mmol/L Potassium (3.3-5.1) mmol/L Chloride (96-108) mmol/L Carbon Dioxide (22-29) mmol/L Anion Gap (12-20) BUN (9-16) mg/dL Creatinine (0.5-1.4) mg/dL Estim Creat Clear Calc Estimated GFR Random Glucose (60-115) mg/dL Calcium (8.4-10.2) mg/dL Magnesium (1.6-2.6) mg/dL Total Bilirubin (0.0-1.0) mg/dL Direct Bilirubin (0.0-0.5) mg/dL AST (5-31) U/L ALT (0-31) U/L Alkaline Phosphatase (39-117) U/L Total Protein (6.5-8.0) g/dL Albumin (3.5-5.0) g/dL Lipase (8-78) U/L Beta HCG, Quant mIU/mL Urine Color Yellow Urine Appearance Turbid Urine pH 7.5 (5.0-9.0) Ur Specific [place] 1.020 (1.005-1.025) Urine Protein Negative (Neg-Trace) mg/dL Urine Glucose (UA) Negative (Negative) mg/dL Urine Ketones Negative (Negative) mg/dL Urine Blood Negative (Negative) Urine Nitrite Negative (Negative) Ur Leukocyte Esterase Trace H (Negative) Urine RBC 0-2 (0-2) /HPF Urine WBC 0-5 (0-5) /HPF Ur Squamous Epith Cells 0-2 (0-2) /HPF Urine Bacteria None Seen (None Seen) Hyaline Casts 0-2 (0-2) /LPF Urine Test POSITIVE H (NEGATIVE) Chlam trachomat DNA PCR (Not Detect.) Influenza Type A (PCR) (Negative) Influenza Type B (PCR) (Negative) N.gonorrhoeae DNA (PCR) (Not Detect.) RSV RNA Qual (PCR) (Negative) SARS-CoV-2 RNA (RT-PCR) (Negative) Blood Type A Positive 06/21/22 06/21/22 Range/Units 12:05 12:20 WBC (4.8-10.8) X10*3/uL RBC (4.20-5.50) X10*6/uL Hgb (12.0-16.0) g/dl Hct (37.0-47.0) % MCV (80.0-98.0) fL MCH (27.0-33.0) pg MCHC (31.0-35.0) g/dl RDW (11.0-16.0) % Plt Count (160-400) X10*3/uL MPV (9.4-12.3) fL Immature Gran % (Auto) (0.0-0.4) % Neut % (Auto) (45-73) % Lymph % (Auto) (20-40) % [place] % (Auto) (2-11) % Eos % (Auto) (0-4) % Baso % (Auto) (0-2) % Lymph # (Auto) (1.2-4.9) X10*3/uL [place] # (Auto) (0.1-1.2) X10*3/uL Eos # (Auto) (0.0-0.4) X10*3/uL Baso # (Auto) (0.0-0.2) X10*3/uL Abs Immat Gran (auto) (0.00-0.03) X10*3/uL Absolute Neuts (auto) (2.0-8.3) x10*3/uL Absolute Nucleated RBC (0.0-0.012) X10*3/uL Nucleated RBC % (auto) (0.0-0.2) /100WBC Sodium (135-145) mmol/L Potassium (3.3-5.1) mmol/L Chloride (96-108) mmol/L Carbon Dioxide (22-29) mmol/L Anion Gap (12-20) BUN (9-16) mg/dL Creatinine (0.5-1.4) mg/dL Estim Creat Clear Calc Estimated GFR Random Glucose (60-115) mg/dL Calcium (8.4-10.2) mg/dL Magnesium (1.6-2.6) mg/dL Total Bilirubin (0.0-1.0) mg/dL Direct Bilirubin (0.0-0.5) mg/dL AST (5-31) U/L ALT (0-31) U/L Alkaline Phosphatase (39-117) U/L Total Protein (6.5-8.0) g/dL Albumin (3.5-5.0) g/dL Lipase (8-78) U/L Beta HCG, Quant mIU/mL Urine Color Urine Appearance Urine pH (5.0-9.0) Ur Specific [place] (1.005-1.025) Urine Protein (Neg-Trace) mg/dL Urine Glucose (UA) (Negative) mg/dL Urine Ketones (Negative) mg/dL Urine Blood (Negative) Urine Nitrite (Negative) Ur Leukocyte Esterase (Negative) Urine RBC (0-2) /HPF Urine WBC (0-5) /HPF Ur Squamous Epith Cells (0-2) /HPF Urine Bacteria (None Seen) Hyaline Casts (0-2) /LPF Urine Test (NEGATIVE) Chlam trachomat DNA PCR NOT DETECTED (Not Detect.) Influenza Type A (PCR) NEGATIVE (Negative) Influenza Type B (PCR) NEGATIVE (Negative) N.gonorrhoeae DNA (PCR) NOT DETECTED (Not Detect.) RSV RNA Qual (PCR) NEGATIVE (Negative) SARS-CoV-2 RNA (RT-PCR) NEGATIVE (Negative) Blood Type Independent Interpretation I performed an independent interpretation of an: Ultrasound Radiology Impression Discussion of test interpretation with radiology: I have reviewed the radiologist's reading. Radiologist Impression: FINDINGS:? UTERUS AND INTRAUTERINE GESTATIONAL SAC: Small fluid-filled cystic structure in the endometrium, this could be tiny gestational sac versus pseudogestational sac. CROWN-RUMP LENGTH (CRL) not visualized might be too early. YOLK SAC: Not found SUBCHORIONIC HEMORRHAGE: None OVARIES: Right: Normal Left: Cystic structure probably a follicle 1.5 x 1.3 x 0.7 cm. FREE FLUID: Small amount of free fluid. OTHER FINDINGS: None US/US OB pelvic and transvaginal IMPRESSION: 1. Small fluid-filled cystic structure in the endometrium could be an early gestational sac versus a pseudogestational sac 0.5 cm, of 5 weeks and 0 days. ? 2. Attention to follow-up recommended. ? External Record Review External record reviewed: Inpatient record, Office record, Outpatient record, Prior outpatient labs, Prior outpatient radiology, Primary care record and Outside ED record Discharge Plan Discharge Clinical Impression: , Threatened Patient Disposition: Home, Self-Care Instructions: Threatened Miscarriage (ED), (ED) Additional Instructions: Call tomorrow to make a follow-up appointment for Wednesday for repeat ultrasound with OBGYN Dr. Joshua. I also put blood work in the computer for the outpatient lab you needs to come Wednesday for this before your appointment. If you develop any fevers, worsening abdominal pain or worsening bleeding then you will need to return immediately before Wednesday. Prescriptions: No Action No Known Home Meds Referrals: Diana Douglass MD [Primary Care Provider] - 2 days Luis Joshua MD [Physician] - (Call tomorrow to make a follow-up appointment for Wednesday for repeat ultrasound. I also put blood work in the computer for the outpatient lab he needs to come Wednesday for this) Stand Alone Forms: Work/School Release
[2022-06-21 12:32] LABS: Alanine Aminotransferase 15 U/L (0-31); Albumin Level 4.1 g/dL (3.5-5.0); Alkaline Phosphatase 49 U/L (39-117); Aspartate Amino Transferase 17 U/L (5-31); Bilirubin Direct 0.3 mg/dL (0.0-0.5); Bilirubin Total 1.1 mg/dL (0.0-1.0); Lipase 26 U/L (8-78); Magnesium 1.9 mg/dL (1.6-2.6); Total Protein 7.4 g/dL (6.5-8.0)
[2022-06-21 12:49] LABS: Influenza A PCR NEGATIVE (Negative); Influenza B PCR NEGATIVE (Negative); Resp Syncy Virus RNA Qual PCR NEGATIVE (Negative); SARS COV2 PCR INHOUSE NEGATIVE (Negative)
[2022-06-21] MEDS: Acetaminophen 325 MG TABLET 975 MG PO (13:15)
[2022-06-21] MEDS: Ondansetron ODT 4 MG TAB.RAPDIS TRANSLINGU (13:15)
[2022-06-21 13:20] VITALS: BP 106/71; PULSE 62; RESP 14; TEMP 36.4; O2SAT 100
[2022-06-21 14:12] VITALS: BP 100/60; PULSE 66; RESP 16; TEMP 36.7; O2SAT 100
[2022-06-21 14:48] LABS: CT PCR NOT DETECTED (Not Detect.); NG PCR NOT DETECTED (Not Detect.)
--- NOTE | 2022-06-21 14:56 | PM.GYNCN ---
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 The patient had a positive urine test at home last week, no care yet. Was told to come here to be evaluated per OB and has a history of an ectopic last year, no additional concerns. HCG 468, blood type A positive, CBC within normal GC and chlamydia negative, BV panel and Trichomonas pending cc:: CC: OB [facility] Past Medical History Medical History (Updated 06/21/22 @ 15:01 by Luis Joshua MD) Asthma BMI 36.0-36.9,adult BMI 37.0-37.9, adult BMI 39.0-39.9,adult GERD (gastroesophageal reflux disease) History of injury of tendon Nausea PCOS (polycystic ovarian syndrome) Prediabetes Situational anxiety Wears contact lenses Family History Family History Mother No problems noted. Father Diabetes Hypertension Sister No problems noted. Sister No problems noted. Sister No problems noted. Sister Lupus Brother No problems noted. Son No problems noted. Daughter No problems noted. 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 (children aged 13,9,2 to help) Do you presently have visiting nurse or other home services: No Alcohol intake: current Alcohol intake frequency: holidays/special occasions only Patient Tobacco Use Status: Never used Tobacco Smoked in Last 30 Days: No Use of substances other than those prescribed or required for medical reasons: No Advance Directives: No Advance Directives Information Provided: No Patient : Yes service: No Current occupational status: employed Meds Allergies Allergy/AdvReac Type Severity Reaction Status Date / Time Seasonal Allergies Allergy Severe hives,itchy Verified 02/18/22 15:31 eys Home Medications Medication Instructions Recorded Confirmed Last Taken Type No Known Home Meds 02/18/22 02/18/22 Unknown 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 Vitals Vital signs: Temp Pulse Resp BP Pulse Ox O2 Del Method 98.1 F 66 16 100/60 100 06/21/22 14:12 06/21/22 14:12 06/21/22 14:12 06/21/22 14:12 06/21/22 14:12 06/21/22 14:12 BMI result Body Mass Index 25.0 Additional Comments: Reported by NARGIS Gallegos as the following: Abdominal exam: soft, benign, no tenderness or guarding or rebound Pelvic exam within normal, no uterine or adnexal tenderness, no cervical motion tender COMMERCIAL HVAC SERVICE TECHNICIAN - Results Labs 06/21/22 10:43 06/21/22 10:43 Labs: Short CBC 06/21/22 Range/Units 10:43 WBC 5.7 (4.8-10.8) X10*3/uL Hgb 13.3 (12.0-16.0) g/dl Hct 39.9 (37.0-47.0) % Plt Count 266 (160-400) X10*3/uL BMP 06/21/22 10:43 Sodium 138 Potassium 3.9 Chloride 103 Carbon Dioxide 25 BUN 13 Creatinine 0.78 Calcium 9.7 Liver Function 06/21/22 Range/Units 10:43 Total Bilirubin 1.1 H (0.0-1.0) mg/dL Direct Bilirubin 0.3 (0.0-0.5) mg/dL AST 17 (5-31) U/L ALT 15 (0-31) U/L Alkaline Phosphatase 49 (39-117) U/L Albumin 4.1 (3.5-5.0) g/dL Urine 06/21/22 06/21/22 Range/Units 10:43 10:43 Urine Color Yellow Urine Appearance Turbid Urine pH 7.5 (5.0-9.0) Ur Specific [place] 1.020 (1.005-1.025) Urine Protein Negative (Neg-Trace) mg/dL Urine Glucose (UA) Negative (Negative) mg/dL Urine Test POSITIVE H (NEGATIVE) Imaging US - abdomen: Radiologist's impression: ITS Impressions Pelvic/Transvag US 06/21/22 13:14 IMPRESSION: 1. Small fluid-filled cystic structure in the endometrium could be an early gestational sac versus a pseudogestational sac 0.5 cm, of 5 weeks and 0 days. 2. Attention to follow-up recommended. Assessment and Plan (1) Spotting in first trimester: Status: Acute Plan Recommended to NARGIS Gallegos the following: Check urine culture, BV panel and Trichomonas and treat accordingly. Given the patient history of ectopic , there is a risk of recurrence rate, SAB/ectopic warnings, instructions to be given to patient to come back to the emergency room with pelvic pain and or bleeding, hCG quantitative in 48 hours, follow-up in our office in 2 days. I spent a total of 20 minutes reviewing the chart, communicating to the emergency room provider and documenting in the medical record. Time Spent With Patient Time: Total time managing care of this patient today ____ minutes.
[2022-06-22 11:18] LABS: BV Int Neg Control Negative (Negative); BV Int Pos Control Positive (Positive)
== END 2022-06-21 16:02 | disposition home or self-care (01) ==
PROVIDERS: Physician Assistant Medical; Emergency Provider Student in an Organized Health Care Education/Training Program; PCP Family Medicine
DX: O20.0 Threatened abortion (principal); Z3A.01 Less than 8 weeks gestation of pregnancy; Z20.828 Contact with and (suspected) exposure to other viral communicable diseases; Z20.822 Contact with and (suspected) exposure to COVID-19; Z79.899 Other long term (current) drug therapy
CPT/HCPCS: 0241U; 0353U; 36415; 76801; 76817; 80048; 80076; 81001; 81025; 83690; 83735; 84702; 85025; 86900; 86901; 87480; 87510; 87660; 99284

== ENCOUNTER 2022-06-23 08:04 | Outpatient (REF) | payer OTHER, SELFPAY ==
[2022-06-23 09:33] LABS: HCG Quantitative 890 mIU/mL
[2022-06-23 15:14] LABS: CT PCR NOT DETECTED (Not Detect.); NG PCR NOT DETECTED (Not Detect.)
== END 2022-06-23 08:05 | disposition home or self-care (01) ==
LOC: HO.LAB 08:04
PROVIDERS: PCP Family Medicine; Visit Provider Obstetrics & Gynecology
DX: O26.851 Spotting complicating pregnancy, first trimester (principal)
CPT/HCPCS: 0353U; 36415; 84702; 99212

== ENCOUNTER 2022-06-23 09:54 | Outpatient (REF) | payer OTHER, SELFPAY | END 2022-06-23 09:55 | disposition home or self-care (01) | LOC: HO.LNP 09:54 | PROVIDERS: Visit Provider Obstetrics & Gynecology | DX: Z13.89 Encounter for screening for other disorder (principal) ==

== ENCOUNTER 2022-06-25 12:18 | Outpatient (REF) | payer OTHER, SELFPAY ==
[2022-06-25 13:56] LABS: HCG Quantitative 2105 mIU/mL
== END 2022-06-25 12:19 | disposition home or self-care (01) ==
LOC: HO.LAB 12:18
PROVIDERS: PCP Family Medicine; Visit Provider Obstetrics & Gynecology
DX: O20.0 Threatened abortion (principal)
CPT/HCPCS: 36415; 84702

== ENCOUNTER 2022-06-26 09:39 | Outpatient (REF) | payer OTHER, SELFPAY ==
--- NOTE | ~2022-06-26 | US_ITS ---
EXAMINATION: US OBSTETRICAL ULTRASOUND CLINICAL INFORMATION: Body. First trimester COMPARISON: Previous pelvic ultrasound 06/21/2022. LMP: 05/15/2022. Gestational age by maternal dates is 6 weeks 0 days. Estimated date of delivery by maternal dates is 11/03/2022. TECHNIQUE: Transabdominal and transvaginal pelvic ultrasound. Transvaginal exam was performed for better visualization of the gestational sac. FINDINGS: There is an intrauterine gestational sac and questionable yolk sac. No pole is seen. Mean sac diameter measures 1.08 cm suggesting gestational age of 5 weeks 6 days. There is a small amount of fluid seen in the endometrial cavity. The right ovary is normal and measures 3.6 x 1.8 x 1.2 cm. The left ovary measures 2 x 2.2 x 3 cm. There is a 2 x 1.9 x 1.8 cm complex left ovarian cyst probably representing a corpus luteum. There is trace fluid in the pelvis. US/US OB pelvic and transvaginal IMPRESSION: Intrauterine gestational sac and questionable yolk sac. No pole seen. The mean sac diameter suggests gestational age 5 weeks 6 days.
== END 2022-06-26 09:40 | disposition home or self-care (01) ==
LOC: HO.US 09:39
PROVIDERS: Visit Provider Obstetrics & Gynecology
DX: O26.851 Spotting complicating pregnancy, first trimester (principal)
CPT/HCPCS: 76801; 76817; 99212

== ENCOUNTER → 2022-07-03 16:18 | Outpatient (BNVA) | payer OTHER, SELFPAY | PROVIDERS: PCP Family Medicine; Visit Provider Dietitian, Registered | DX: Z90.3 Acquired absence of stomach [part of] (principal); Z71.3 Dietary counseling and surveillance | CPT/HCPCS: 97803 ==

== ENCOUNTER 2022-07-09 16:20 | Outpatient (REF) | payer OTHER, MEDICAID, SELFPAY ==
[2022-07-09 17:47] LABS: Estimated Average Glucose 88 mg/dL; Hemoglobin A1c % 4.7 %
[2022-07-09 17:57] LABS: C Reactive Protein 0.55 mg/dL (< or = 0.50); Cholesterol 218 mg/dL; HDL Cholesterol 77 mg/dL; Iron 54 mcg/dL (30-160); LDL Cholesterol Calculated 118 mg/dl; Percent Iron Saturation 18 % (15-50); Total Iron Binding Capacity 301 mcg/dL (228-428); Triglycerides 119 mg/dL; Unsaturated Iron Binding 247 ug/dL
[2022-07-09 18:26] LABS: Ferritin 90 ng/mL (10-122); Folate 11.7 ng/mL (> or = 4.0); Insulin 4 uU/mL (2-29); TSH reflex Free T4 0.69 uIU/mL (0.32-4.0); Vitamin B12 446 pg/mL (200-900)
[2022-07-13 15:53] LABS: PTHI 30 pg/mL (16-77)
[2022-07-14 01:43] LABS: Zinc 55 mcg/dL (60-130)
[2022-07-14 12:58] LABS: Vitamin A 51 mcg/dL (38-98)
[2022-07-15 16:03] LABS: Vitamin B1 16 nmol/L (8-30)
== END 2022-07-09 16:21 | disposition home or self-care (01) ==
LOC: HO.LAB 16:20
PROVIDERS: PCP Family Medicine; Visit Provider Physician Assistant Surgical
DX: K91.2 Postsurgical malabsorption, not elsewhere classified (principal); Z98.84 Bariatric surgery status
CPT/HCPCS: 36415; 80061; 82306; 82607; 82728; 82746; 83036; 83525; 83540; 83970; 84425; 84443; 84590; 84630; 86140

== ENCOUNTER 2022-07-14 16:30 | Outpatient (REF) | payer OTHER, SELFPAY ==
--- NOTE | ~2022-07-14 | US_ITS ---
EXAMINATION: US OBSTETRICAL ULTRASOUND CLINICAL INFORMATION: First trimester spotting. COMPARISON: 06/26/2022 and 06/21/2022. LMP: 05/15/2022. Gestational age by maternal dates is 8 weeks 4 days. Estimated date of delivery by maternal dates is 02/19/2023. TECHNIQUE: OB ultrasound, transabdominal and transvaginal. FINDINGS: There is a single intrauterine gestational sac with visible yolk sac, embryo/fetus, and cardiac activity. There is no significant subchorionic hemorrhage or hematoma. HR: 155 beats per minute. CRL (crown rump length): 1.20 cm. (7 weeks 3 days +/- 4 days). PAPITO (estimated date of delivery): 02/27/2023 +/- 4 days. MATERNAL ADNEXA: The right maternal ovary measures: 3.2 x 1.8 x 2.6 cm. No adnexal abnormality identified. The left maternal ovary measures: 4.1 x 2.4 x 2.6 cm. A 1.6 x 1.7 x 1.8 cm corpus luteum present. There is no significant maternal adnexal mass. No maternal pelvic ascites. US/US OB pelvic and transvaginal IMPRESSION: 1. Single intrauterine gestation with ultrasound gestational age of 7 weeks 3 days +/- 4 days. 2. Estimated date of delivery is 02/27/2023 +/- 4 days. 3. No maternal adnexal mass or pelvic ascites.
== END 2022-07-14 16:31 | disposition home or self-care (01) ==
LOC: HO.US 16:30
PROVIDERS: PCP Family Medicine; Visit Provider Obstetrics & Gynecology
DX: O26.851 Spotting complicating pregnancy, first trimester (principal); Z3A.08 8 weeks gestation of pregnancy
CPT/HCPCS: 76801; 76817

== ENCOUNTER → 2022-07-20 15:26 | Outpatient (BNVA) | payer OTHER, SELFPAY | PROVIDERS: PCP Family Medicine; Visit Provider Obstetrics & Gynecology | DX: Z34.91 Encounter for supervision of normal pregnancy, unspecified, first trimester (principal) | CPT/HCPCS: 99212 ==

== ENCOUNTER → 2022-07-30 14:20 | Outpatient (BNVA) | payer OTHER, SELFPAY | PROVIDERS: PCP Family Medicine; Visit Provider Advanced Practice Midwife ==

== ENCOUNTER 2022-12-15 12:10 | Outpatient (AMB) | payer OTHER, SELFPAY ==
--- NOTE | 2022-12-15 12:00 | A.OFFVIS_ITS ---
Intake VS Expanded 12/15/22 12:07 Height 5 ft 2 in Weight 176 lb BMI 32.2 Intake Visit Reasons: (OV) PO LSG 08/21/21 Allergies Seasonal Allergies Allergy (Severe, Verified 07/20/22 15:30) hives,itchy eys HPI HPI Comments History of Present Illness Details This?is a?32?yo female who is s/p LSG 08/21/2021. Presents for 1 year 4 month post op visit. She is in her third trimester of . She became in May 2022. Seen by RD in June just after known started on Procare bariatric MVI and did not show up to appointment in July. She has been followed by her regular breaking machine operator outside the system. Has not been seen in the office since. Weight today is 176 pounds with a BMI of 32.2 and she is due Feb 17. Taking Procare bariatric MVI. States she has had labs Dr Bowden (Ob) and she has been told no vitamin deficiencies and to continue Procare MVI. As far as she is aware, everything is going ok with the . She has had the possibility of gestational diabetes and is scheduled for the 3 hour glucose test this week. Couldn't tolerate shakes in the first or second trimester due to vomiting. Now tolerating ok [employer] shake 30 gm meal of leftovers snacking throughout the day on trailmix, fruit, salads w protein meal protein and veg w salad [facility] Medical History Asthma BMI 36.0-36.9,adult BMI 37.0-37.9, adult BMI 39.0-39.9,adult GERD (gastroesophageal reflux disease) History of injury of tendon Nausea PCOS (polycystic ovarian syndrome) Prediabetes Situational anxiety Wears contact lenses Surgical History History of finger joint replacement History of mandibular surgery S/P laparoscopic sleeve gastrectomy Family History Mother No problems noted. Father Diabetes Hypertension Sister No problems noted. Sister No problems noted. Sister No problems noted. Sister Lupus Brother No problems noted. Son No problems noted. Daughter No problems noted. Social History Household Members: Spouse Housing: Apartment Are you a primary child care center assistant director to a significant other at home: Yes (children aged 13,9,2 to help) Do you presently have visiting nurse or other home services: No Alcohol intake: current Alcohol intake frequency: holidays/special occasions only Patient Tobacco Use Status: Never used Tobacco service: No Current occupational status: employed Assessment & Plan Assessment & Plan (1) Obesity: Code(s): E66.9 - Obesity, unspecified Plan: s/p LSG in August 2021 now in third trimester of , due Feb 17. States her Junior Graphic Designer has been monitoring labs and nutrient levels She will have them fax over results and we will order any test needed She will f/u with RD in the next week or so Continue Procare bariatric MVI Continue fairlife shake, 2 meals 4 oz protein, veg/fruits, wolof yogurt and trailmix as able Telehealth Telehealth Location of provider rendering services: practice address Location of patient: address on file Patient Identification confirmed using: Name, : Yes Telehealth method: video Patient verbally consented to treatment: Yes Patient verbally consented to billing insurance company: Yes Patient informed of any privacy concerns related to visit: Yes Minutes spent on Phone/Video with Pt.: 18 Coding Level of Care Code Tele Est Pt Level 3 (50056) Diagnoses Obesity E66.9 Time Spent (min) 20
[2022-12-15 12:07] VITALS: BMI 32.2
== END 2022-12-15 12:55 | disposition home or self-care (01) ==
LOC: HO.HBS 12:10
PROVIDERS: PCP Family Medicine; Visit Provider Physician Assistant Surgical
DX: E66.9 Obesity, unspecified (principal); Z68.32 Body mass index [BMI] 32.0-32.9, adult
CPT/HCPCS: 99213

== ENCOUNTER → 2022-12-15 12:10 | Outpatient (BNVA) | payer OTHER, SELFPAY | PROVIDERS: PCP Family Medicine; Visit Provider Physician Assistant Surgical ==

== ENCOUNTER → 2022-12-28 16:08 | Outpatient (BNVA) | payer OTHER, SELFPAY | PROVIDERS: PCP Family Medicine; Visit Provider Dietitian, Registered | DX: O99.810 Abnormal glucose complicating pregnancy (principal); O26.893 Other specified pregnancy related conditions, third trimester; O99.283 Endocrine, nutritional and metabolic diseases complicating pregnancy, third trimester; E28.2 Polycystic ovarian syndrome; Z3A.00 Weeks of gestation of pregnancy not specified; Z90.3 Acquired absence of stomach [part of]; Z71.3 Dietary counseling and surveillance | CPT/HCPCS: 97803 ==

== ENCOUNTER 2023-01-04 13:51 | Outpatient (AMB) | payer OTHER, SELFPAY ==
--- NOTE | 2023-01-04 14:17 | MHC.AMNUTRGE ---
Intake Intake Visit Reasons: (OV) PO LSG 08/21/21 Allergies Seasonal Allergies Allergy (Severe, Verified 07/20/22 15:30) hives,itchy eys HPI Nutrition Presentation Details PO LSG with Dr. Trenton DUFFY 08/21/21 Preop weight (08/20) 191# weight at 4WKS PO 173# weight 3 MO PO 154# weight in beginning of first trimester 136 current weight 3rd trimester 176# Diet Assmnt Details , due feb 17 , is having a baby girl . Patient was lost to follow-up with our office for most of her First trimester barely ate anything due to nausea and vomiting. Second trimester this improved. Third trimester doing a lot better wakes up ,lightheaded, dizziness, shakey. She has several of these episodes throughout the day as well. wakes up and has a low blood sugar around 60's. Did her finger sticks test and BG were abnormal per pt. Her OB ordered an OGTT. pt concerned about this. last appt recommended CGM, pt receptive. today I helped pt apply the sensor and educated her. Next OB sept [facility] . is having RD GDM education this week. 1 [employer] core power 42g shakes lunch- protein, veg - chicken and green beans Dinner: protein and veg Has 3-4 snacks (always a bedtime snack) : pomegranate, oranges, yogurt, turkey jerky and cheese, yogurt, overnight oats Taking procare bariatric - adequate Hydration: 5 bottles of water per day Exercise: walking daily Diagnosis Nutrition problem #1 increased nutrient needs As related to (etiology) #1 increased energy needs As evidenced by (sign/symptom) #1 other () Nutrition problem #2 altered nutrition labs As related to (etiology) #2 altered metabolism nutri As evidenced by (sign/symptom) #2 abnormal lab values and widely varied blood sugar Monitoring/Goals Nutrition problem monitoring total energy intake, level of knowledge/skill, total PRO intake, total CHO intake and weight Outcome progress progressing Learning/Education Readiness to learn excellent Stages of change action Educational materials provided Yes Most Recent Diabetes Results: Cholesterol 218 mg/dL 07/09/22 HDL Cholesterol 77 mg/dL 07/09/22 Triglycerides 119 mg/dL 07/09/22 [facility] Medical History Asthma BMI 36.0-36.9,adult BMI 37.0-37.9, adult BMI 39.0-39.9,adult GERD (gastroesophageal reflux disease) History of injury of tendon Nausea PCOS (polycystic ovarian syndrome) Prediabetes Situational anxiety Wears contact lenses Surgical History History of finger joint replacement History of mandibular surgery S/P laparoscopic sleeve gastrectomy Family History Mother No problems noted. Father Diabetes Hypertension Sister No problems noted. Sister No problems noted. Sister No problems noted. Sister Lupus Brother No problems noted. Son No problems noted. Daughter No problems noted. Social History Household Members: Spouse Housing: Apartment Are you a primary daycare provider to a significant other at home: Yes (children aged 13,9,2 to help) Do you presently have visiting nurse or other home services: No Alcohol intake: current Alcohol intake frequency: holidays/special occasions only Patient Tobacco Use Status: Never used Tobacco service: No Current occupational status: employed Assessment & Plan Assessment & Plan (1) S/P laparoscopic sleeve gastrectomy: Comment: 08/21/21 Code(s): Z98.84 - Bariatric surgery status Patient Instructions: Pt received Libre2 CGM today , education provided. Data is shared with me and will help her better understand and control her BG patterns throughout the day. she has a GDM one-on-one appt [facility] this week who will be able to help pt more with diet modifications using this data. I encouraged she communicate any concerns with me and/or OBGYN . She has an appointment previously scheduled with [place] early January Coding Level of Care Code Nutr Indiv Subseq (26436) Diagnoses S/P laparoscopic sleeve gastrectomy Z98.84 Time Spent (min) 30
== END 2023-01-04 14:57 | disposition home or self-care (01) ==
PROVIDERS: PCP Family Medicine; Visit Provider Dietitian, Registered
DX: Z98.84 Bariatric surgery status (principal)

== ENCOUNTER → 2023-01-04 13:51 | Outpatient (BNVA) | payer OTHER, SELFPAY | PROVIDERS: PCP Family Medicine; Visit Provider Dietitian, Registered | DX: O26.893 Other specified pregnancy related conditions, third trimester (principal); E66.9 Obesity, unspecified; K21.9 Gastro-esophageal reflux disease without esophagitis; O99.891 Other specified diseases and conditions complicating pregnancy; R73.03 Prediabetes; Z3A.00 Weeks of gestation of pregnancy not specified; Z90.3 Acquired absence of stomach [part of]; Z71.3 Dietary counseling and surveillance | CPT/HCPCS: 97803 ==

== ENCOUNTER 2023-01-05 15:54 | Outpatient (REF) | payer OTHER, SELFPAY ==
[2023-01-05 17:42] LABS: Vitamin D 25-OH Total 35.7 ng/mL (>30)
[2023-01-05 17:58] LABS: Folate 8.9 ng/mL (> or = 4.0); Vitamin B12 190 pg/mL (200-900)
[2023-01-07 10:48] LABS: Calcium (PTHI) 8.7 mg/dL (8.6-10.2); PTHI 64 pg/mL (16-77)
[2023-01-08 17:33] LABS: Zinc 46 mcg/dL (60-130)
[2023-01-08 17:59] LABS: Vitamin A 41 mcg/dL (38-98)
[2023-01-11 11:52] LABS: Vitamin B1 11 nmol/L (8-30)
== END 2023-01-05 15:55 | disposition home or self-care (01) ==
LOC: HO.LAB 15:54
PROVIDERS: PCP Family Medicine; Visit Provider Physician Assistant
DX: E66.9 Obesity, unspecified (principal); K21.9 Gastro-esophageal reflux disease without esophagitis; Z98.84 Bariatric surgery status
CPT/HCPCS: 36415; 82306; 82607; 82746; 83970; 84425; 84590; 84630

== ENCOUNTER → 2023-01-20 15:37 | Outpatient (BNVA) | payer OTHER, SELFPAY | PROVIDERS: PCP Family Medicine; Visit Provider Dietitian, Registered | DX: Z98.84 Bariatric surgery status (principal); Z71.3 Dietary counseling and surveillance | CPT/HCPCS: 97803 ==

== ENCOUNTER → 2023-02-26 13:54 | Outpatient (BNVA) | payer OTHER, SELFPAY | PROVIDERS: PCP Family Medicine; Visit Provider Dietitian, Registered | DX: Z98.84 Bariatric surgery status (principal) | CPT/HCPCS: 97803 ==

== ENCOUNTER 2023-09-01 12:37 | Outpatient (REF) | payer OTHER, SELFPAY ==
[2023-09-01 13:51] LABS: MANUAL DIFF FLAG NO
[2023-09-01 14:06] LABS: Basophils Percent Auto 0.9 % (0-2); Eosinophils Percent Auto 0.7 % (0-4); Hematocrit 33.8 % (37.0-47.0); Hemoglobin 10.4 g/dl (12.0-16.0); Lymphocytes Absolute Auto 2.6 X10*3/uL (1.2-4.9); Lymphocytes Percent Auto 58.7 % (20-40); Mean Corpuscular HGB Conc 30.8 g/dl (31.0-35.0); Mean Corpuscular Hemoglobin 22.2 pg (27.0-33.0); Mean Corpuscular Volume 72.1 fL (80.0-98.0); Mean Platelet Volume 9.6 fL (9.4-12.3); Monocytes Absolute Auto 0.2 X10*3/uL (0.1-1.2); Monocytes Percent Auto 5.3 % (2-11); Neutrophils Absolute Auto 1.5 x10*3/uL (2.0-8.3); Neutrophils Percent Auto 34.4 % (45-73); Platelet Count 378 X10*3/uL (160-400); Red Blood Count 4.69 X10*6/uL (4.20-5.50); Red Cell Distribution Width 16.1 % (11.0-16.0); White Blood Count 4.4 X10*3/uL (4.8-10.8)
[2023-09-01 14:41] LABS: Estimated Average Glucose 108 mg/dL; Hemoglobin A1c % 5.4 % (<6.0)
[2023-09-01 14:47] LABS: Anion Gap 10 (12-20); Blood Urea Nitrogen 10 mg/dL (9-16); C Reactive Protein 0.22 mg/dL (< or = 0.50); Calcium 9.4 mg/dL (8.4-10.2); Carbon Dioxide 28 mmol/L (22-29); Chloride 104 mmol/L (96-108); Cholesterol 245 mg/dL (<200); Estimated Glomerular Filt Rate > 60; Glucose Random 80 mg/dL (60-115); HDL Cholesterol 87 mg/dL (>40); Iron 19 mcg/dL (30-160); LDL Cholesterol Calculated 146 mg/dL (<100); Percent Iron Saturation 5 % (15-50); Potassium 4.5 mmol/L (3.3-5.1); Sodium 137 mmol/L (135-145); Total Iron Binding Capacity 413 mcg/dL (228-428); Triglycerides 61 mg/dL (<150); Unsaturated Iron Binding 394 ug/dL
[2023-09-01 15:07] LABS: Ferritin 5 ng/mL (10-122); Insulin 3 uU/mL (2-29); TSH reflex Free T4 0.99 uIU/mL (0.32-4.0); Vitamin D 25-OH Total 28.8 ng/mL (>30)
[2023-09-01 15:17] LABS: Folate 9.5 ng/mL (> or = 4.0); Vitamin B12 421 pg/mL (200-900)
[2023-09-03 23:52] LABS: Zinc 69 mcg/dL (60-130)
[2023-09-04 07:38] LABS: Vitamin A 39 mcg/dL (38-98)
[2023-09-05 15:12] LABS: Vitamin B1 12 nmol/L (8-30)
== END 2023-09-01 12:38 | disposition home or self-care (01) ==
LOC: HO.LAB 12:37
PROVIDERS: PCP Family Medicine; Visit Provider Physician Assistant Surgical
DX: E66.3 Overweight (principal); E55.9 Vitamin D deficiency, unspecified; E53.8 Deficiency of other specified B group vitamins; R73.03 Prediabetes; Z98.84 Bariatric surgery status
CPT/HCPCS: 36415; 80048; 80061; 82306; 82607; 82728; 82746; 83036; 83525; 83540; 84425; 84443; 84590; 84630; 85025; 86140; 99212

== ENCOUNTER 2023-09-01 13:01 | Outpatient (AMB) | payer OTHER, SELFPAY ==
--- NOTE | 2023-09-01 13:02 | MHC.OFFVISWM ---
Intake VS Expanded 09/01/23 13:03 BP 106/72 Blood Pressure Location Rt brachial Blood Pressure Position Sitting Pulse 72 Pulse Source Pulse Oximeter Temp 96.8 F Temperature Source Tympanic Pulse Oximetry 72 L Oxygen Delivery Method Room Air Height 5 ft 1.5 in Weight 161 lb 6.4 oz BMI 30.0 Body Fat % 35.8 Body Fat Mass 57.8 Fat Free Mass 74.2 Visceral Fat Rating 6.0 Body Water % 46.0 Body Water Mass 74.2 Muscle Mass/Score 98.4 Basal Metabolic Rate/Score 1,444 Intake Visit Reasons: (oV) PO LSG 08/21/21 Electrical Instrument Repairer Required: No Allergies Seasonal Allergies Allergy (Severe, Verified 09/01/23 13:09) hives,itchy eys Medication List - Last Reconciled 09/01/23 by NARGIS Grande cyanocobalamin (vitamin B-12) 500 mcg PO DAILY pyridoxine (vitamin B6) (Vitamin B-6) 25 mg PO tid PRN 30 days zinc gluconate 10 mg PO DAILY HPI HPI Comments History of Present Illness Details This?is a?32?yo female who is s/p LSG 08/21/2021. Presents for 2 year month post op visit. She had her baby 02/16/23, healthy girl. She became in May 2022. Weight today is 161.4 pounds, with a BMI of 29.5. There has been a 50 pound weight loss,(initial weight 211.4 pounds) since starting the program on 02/17/2021 reflecting a 23.6% total body weight loss and a weight loss of 29.6 pounds since surgery (operative weight 191 pounds) reflecting a 15.4% TBWL since surgery. States her goal is to lose weight to reach 130-134 pounds. No longer breast feeding. Not taking a MVI or calcium plus D. She has not been following a specific meal plan but is excited to get back on track. meal plan: nothing formal since her daughter was born. Previously: [employer] shake 30 gm meal of leftovers snacking throughout the day on trailmix, fruit, salads w protein meal protein and veg w salad Drinking 32 oz water, no soda or juice. Exercise plan: gym treadmill 3 x per week 250-300, speed 3.5 incline 12-15, 30 minutes Any post op complications: none ANNIKA: never DM: resolved HTN: never Hyperlipidemia: resolved GERD:?0-5 scale ??0 = no symptoms ??1 = symptoms noticeable but not bothersome 2 =symptoms bothersome but not daily ? 3 = symptoms bothersome and daily 4 = symptoms affect daily activities 5 = symptoms are incapacitating, unable to do daily activities ? How bad is the heartburn: 0 ? Heartburn while lying down: 0 ? Heartburn when standing up: 0 ? Heartburn after meals: 0 ? Does heartburn change your diet: 0 ? Does heartburn wake you up from sleep: 0 ? Do you have difficulty swallowin ? Do you have pain with swallowin ? If you take medicine for your reflux, does this affect your daily life: 0 Satisfaction with present condition - satisfied or not satisfied: disatisfied due to weight. [facility] Medical History GERD (gastroesophageal reflux disease) Wears contact lenses Situational anxiety History of injury of tendon Nausea BMI 36.0-36.9,adult BMI 37.0-37.9, adult Asthma PCOS (polycystic ovarian syndrome) Prediabetes BMI 39.0-39.9,adult Surgical History S/P laparoscopic sleeve gastrectomy History of finger joint replacement History of mandibular surgery Family History Mother No problems noted. Father Diabetes Hypertension Sister No problems noted. Sister No problems noted. Sister No problems noted. Sister Lupus Brother No problems noted. Son No problems noted. Daughter No problems noted. Social History Household Members: Spouse Housing: Apartment Are you a primary manager intensive care to a significant other at home: Yes (children aged 13,9,2 to help) Do you presently have visiting nurse or other home services: No Alcohol intake: current Alcohol intake frequency: holidays/special occasions only Patient Tobacco Use Status: Never used Tobacco service: No Current occupational status: employed Physical Exam Const General: cooperative and no acute distress Orientation/consciousness: patient oriented x3 Resp Effort & Inspection: normal respiratory effort Auscultation: clear to auscultation bilaterally Cardio Rate: regular rate Rhythm: regular rhythm GI Inspection: Yes normal to inspection and Yes incision (well healed) Palpation (GI): Soft to palpation and no masses Neuro General: patient oriented x3 Assessment & Plan Assessment & Plan (1) S/P laparoscopic sleeve gastrectomy: Comment: 08/21/21 Code(s): Z98.84 - Bariatric surgery status Plan: We will start a new meal plan based upon arising at 06:00 and the request of having a meal at the evening, as well as utilizing Premier protein powder. Premier protein powder, 1 scoop in 10 oz of almond milk at 7-9 am Shake half scoop 12-2 Bar, zone perfect 3-5 Meal with 7 forks of protein and 7 forks of vegetables 7 pm Increase water to 64 oz per day. Increase exercise to 5 days per week, 400 calories, treadmill with a speed of 3.5 and incline from 2 through 15. Consideration for adding weight training, prior to cardio. Certainly may alternate between treadmill, stationary bike, elliptical machine. Check 2 year postoperative labs. Encouraged to take a bariatric multivitamin as well as calcium plus D. Return to clinic 1 month. Orders: Orders Insulin Today E53.8 - Deficiency of other specified B group vitamins, E55.9 - Vitamin D deficiency, unspecified, E66.3 - Overweight, R73.03 - Prediabetes, Z98.84 - Bariatric surgery status Complete Blood Count Auto Diff Today E53.8 - Deficiency of other specified B group vitamins, E55.9 - Vitamin D deficiency, unspecified, E66.3 - Overweight, R73.03 - Prediabetes, Z98.84 - Bariatric surgery status Lipid Panel Today E53.8 - Deficiency of other specified B group vitamins, E55.9 - Vitamin D deficiency, unspecified, E66.3 - Overweight, R73.03 - Prediabetes, Z98.84 - Bariatric surgery status IRON PROFILE Today E53.8 - Deficiency of other specified B group vitamins, E55.9 - Vitamin D deficiency, unspecified, E66.3 - Overweight, R73.03 - Prediabetes, Z98.84 - Bariatric surgery status Zinc Today E53.8 - Deficiency of other specified B group vitamins, E55.9 - Vitamin D deficiency, unspecified, E66.3 - Overweight, R73.03 - Prediabetes, Z98.84 - Bariatric surgery status C Reactive Protein Today E53.8 - Deficiency of other specified B group vitamins, E55.9 - Vitamin D deficiency, unspecified, E66.3 - Overweight, R73.03 - Prediabetes, Z98.84 - Bariatric surgery status Vitamin A Today E53.8 - Deficiency of other specified B group vitamins, E55.9 - Vitamin D deficiency, unspecified, E66.3 - Overweight, R73.03 - Prediabetes, Z98.84 - Bariatric surgery status Ferritin Today E53.8 - Deficiency of other specified B group vitamins, E55.9 - Vitamin D deficiency, unspecified, E66.3 - Overweight, R73.03 - Prediabetes, Z98.84 - Bariatric surgery status Vitamin D 25-OH Total Today E53.8 - Deficiency of other specified B group vitamins, E55.9 - Vitamin D deficiency, unspecified, E66.3 - Overweight, R73.03 - Prediabetes, Z98.84 - Bariatric surgery status Basic Metabolic Panel Today E53.8 - Deficiency of other specified B group vitamins, E55.9 - Vitamin D deficiency, unspecified, E66.3 - Overweight, R73.03 - Prediabetes, Z98.84 - Bariatric surgery status Hemoglobin A1c Today E53.8 - Deficiency of other specified B group vitamins, E55.9 - Vitamin D deficiency, unspecified, E66.3 - Overweight, R73.03 - Prediabetes, Z98.84 - Bariatric surgery status Vitamin B12 and Folate Today E53.8 - Deficiency of other specified B group vitamins, E55.9 - Vitamin D deficiency, unspecified, E66.3 - Overweight, R73.03 - Prediabetes, Z98.84 - Bariatric surgery status Vitamin B1 Today E53.8 - Deficiency of other specified B group vitamins, E55.9 - Vitamin D deficiency, unspecified, E66.3 - Overweight, R73.03 - Prediabetes, Z98.84 - Bariatric surgery status TSH reflex Free T4 Today E53.8 - Deficiency of other specified B group vitamins, E55.9 - Vitamin D deficiency, unspecified, E66.3 - Overweight, R73.03 - Prediabetes, Z98.84 - Bariatric surgery status Coding Level of Care Code Est Pt Level 4 (82531) Diagnoses S/P laparoscopic sleeve gastrectomy Z98.84
[2023-09-01 13:03] VITALS: BP 106/72; PULSE 72; TEMP 36; O2SAT 72
== END 2023-09-01 13:32 | disposition home or self-care (01) ==
PROVIDERS: PCP Family Medicine; Visit Provider Physician Assistant Surgical
DX: E66.9 Obesity, unspecified (principal); Z68.30 Body mass index [BMI] 30.0-30.9, adult; Z90.3 Acquired absence of stomach [part of]; Z98.84 Bariatric surgery status
CPT/HCPCS: 99214

== ENCOUNTER 2024-05-31 11:07 | Outpatient (AMB) | payer OTHER, SELFPAY ==
--- NOTE | 2024-05-31 11:09 | A.OFFVIS_ITS ---
VS Expanded 05/31/24 11:17 BP 113/63 Blood Pressure Location Rt brachial Blood Pressure Position Sitting Pulse 77 Pulse Source Pulse Oximeter Temp 97.7 F Temperature Source Temporal Artery Scan Pulse Oximetry 98 Oxygen Delivery Method Room Air Height 5 ft 1.5 in Weight 145 lb 9.6 oz BMI 27.1 Body Fat % 32.7 Body Fat Mass 47.6 Fat Free Mass 97.8 Visceral Fat Rating 5.0 Body Water % 48.2 Body Water Mass 70.2 Muscle Mass/Score 92.8 Basal Metabolic Rate/Score 1,356 Intake Visit Reasons: (OV) PO LSG 08/21/21 Allergies Seasonal Allergies Allergy (Severe, Verified 05/31/24 11:13) hives,itchy eys HPI Comments Details: This?is a?33?yo female who is s/p LSG 08/21/2021. Presents for 2 year, 9 month month post op visit. She had her baby 02/16/23, healthy girl. She became in May 2022. Weight today is 145.6 pounds, with a BMI of 27.1. There has been a 65.8 pound weight loss,(initial weight 211.4 pounds) since starting the program on 02/17/2021 reflecting a 31.1% total body weight loss and a weight loss of 45.4 pounds since surgery (operative weight 191 pounds) reflecting a 23.7% TBWL since surgery. States her goal is to lose weight to reach 130-134 pounds. No longer breast feeding. She states that she is having some nausea with her vitamins, she will switch to taking these at night. Has not been taking her multivitamin consistently, would like to recheck her iron levels as well as vitamin levels. meal plan recommended at her last follow-up in 09/04/2023: Premier protein powder, 1 scoop in 10 oz of almond milk at 7-9 am Shake half scoop 12-2 Bar, zone perfect 3-5 Meal with 7 forks of protein and 7 forks of vegetables 7 pm (not measuring) Drinking 64 oz water, no soda or juice. Exercise plan: gym treadmill 4-5 x per week weights x 30 then cardio. 500, speed 3.5 incline 12-15, 30 minutes [facility] Medical History GERD (gastroesophageal reflux disease) Wears contact lenses Situational anxiety History of injury of tendon Nausea BMI 36.0-36.9,adult BMI 37.0-37.9, adult Asthma PCOS (polycystic ovarian syndrome) Prediabetes BMI 39.0-39.9,adult Surgical History (Updated 05/31/24 @ 11:16 by Bell Bruce [facility]) Hx of plastic surgery S/P laparoscopic sleeve gastrectomy History of finger joint replacement History of mandibular surgery Family History Mother No problems noted. Father Diabetes Hypertension Sister No problems noted. Sister No problems noted. Sister No problems noted. Sister Lupus Brother No problems noted. Son No problems noted. Daughter No problems noted. Social History Household Members: Spouse Housing: Apartment Are you a primary pharmacist critical care to a significant other at home: Yes (children aged 13,9,2 to help) Do you presently have visiting nurse or other home services: No Alcohol intake: current Alcohol intake frequency: does not drink Patient Tobacco Use Status: Never used Tobacco service: No Current occupational status: employed Physical Exam Const General: healthy appearing and no acute distress Resp Effort & Inspection: normal respiratory effort Auscultation: clear to auscultation bilaterally Cardio Rate: regular rate Rhythm: regular rhythm GI Auscultation: normal bowel sounds Extrem General: Yes normal to inspection Assessment & Plan Assessment & Plan (1) S/P laparoscopic sleeve gastrectomy: Comment: 08/21/21 Code(s): Z98.84 - Bariatric surgery status Category: Surgical Plan: Recheck vitamin levels per patient request. Recommend changing her meal plan: Premier protein powder, 1/2 scoop in 10 oz of almond milk at 7-9 am Shake half scoop 12-2 Bar, zone perfect 3-5 Meal with 7 forks of protein and 7 forks of vegetables 7 pm Discussed the importance of measuring her food quantity. Return to the office 6 weeks. Orders: Orders Complete Blood Count Auto Diff Today E53.8 - Deficiency of other specified B group vitamins, E55.9 - Vitamin D deficiency, unspecified, Z98.84 - Bariatric surgery status Vitamin D 25-OH Total Today E53.8 - Deficiency of other specified B group vitamins, E55.9 - Vitamin D deficiency, unspecified, Z98.84 - Bariatric surgery status Ferritin Today E53.8 - Deficiency of other specified B group vitamins, E55.9 - Vitamin D deficiency, unspecified, Z98.84 - Bariatric surgery status IRON PROFILE Today E53.8 - Deficiency of other specified B group vitamins, E55.9 - Vitamin D deficiency, unspecified, Z98.84 - Bariatric surgery status Zinc Today E53.8 - Deficiency of other specified B group vitamins, E55.9 - Vitamin D deficiency, unspecified, Z98.84 - Bariatric surgery status Vitamin A Today E53.8 - Deficiency of other specified B group vitamins, E55.9 - Vitamin D deficiency, unspecified, Z98.84 - Bariatric surgery status Vitamin B1 Today E53.8 - Deficiency of other specified B group vitamins, E55.9 - Vitamin D deficiency, unspecified, Z98.84 - Bariatric surgery status Vitamin B12 and Folate Today E53.8 - Deficiency of other specified B group vitamins, E55.9 - Vitamin D deficiency, unspecified, Z98.84 - Bariatric surgery status
[2024-05-31 11:17] VITALS: BP 113/63; PULSE 77; TEMP 36.5; O2SAT 98; BMI 27.1
== END 2024-05-31 11:36 | disposition home or self-care (01) ==
PROVIDERS: PCP Family Medicine; Visit Provider Physician Assistant Surgical
DX: E66.3 Overweight (principal); Z68.27 Body mass index [BMI] 27.0-27.9, adult; Z90.3 Acquired absence of stomach [part of]; Z98.84 Bariatric surgery status
CPT/HCPCS: 99213; G2211

== ENCOUNTER 2024-05-31 11:07 | Outpatient (REF) | payer OTHER, SELFPAY ==
[2024-05-31 11:49] LABS: Basophils Percent Auto 0.6 % (0-2); Eosinophils Absolute Auto 0.1 X10*3/uL (0.0-0.4); Eosinophils Percent Auto 1.5 % (0-4); Hematocrit 35.5 % (37.0-47.0); Hemoglobin 11.2 g/dl (12.0-16.0); Imm Gran Abs Auto 0.01 X10*3/uL (0.00-0.03); Imm Gran Pct Auto 0.2 % (0.0-0.4); Lymphocytes Absolute Auto 2.8 X10*3/uL (1.2-4.9); Lymphocytes Percent Auto 53.3 % (20-40); MANUAL DIFF FLAG NO; Mean Corpuscular HGB Conc 31.5 g/dl (31.0-35.0); Mean Corpuscular Hemoglobin 25.1 pg (27.0-33.0); Mean Corpuscular Volume 79.4 fL (80.0-98.0); Mean Platelet Volume 9.8 fL (9.4-12.3); Monocytes Absolute Auto 0.3 X10*3/uL (0.1-1.2); Monocytes Percent Auto 5.3 % (2-11); Neutrophils Absolute Auto 2.1 x10*3/uL (2.0-8.3); Neutrophils Percent Auto 39.1 % (45-73); Platelet Count 361 X10*3/uL (160-400); Red Blood Count 4.47 X10*6/uL (4.20-5.50); Red Cell Distribution Width 13.4 % (11.0-16.0); White Blood Count 5.3 X10*3/uL (4.8-10.8)
[2024-05-31 12:09] LABS: Iron 33 mcg/dL (30-160); Percent Iron Saturation 9 % (15-50); Total Iron Binding Capacity 354 mcg/dL (228-428); Unsaturated Iron Binding 321 ug/dL
[2024-05-31 12:24] LABS: Ferritin 12 ng/mL (10-122); Vitamin D 25-OH Total 26.5 ng/mL (>30)
[2024-05-31 12:39] LABS: Folate 13.2 ng/mL (> or = 4.0); Vitamin B12 452 pg/mL (200-900)
[2024-06-03 16:04] LABS: Zinc 58 mcg/dL (60-130)
[2024-06-05 17:43] LABS: Vitamin A 33 mcg/dL (38-98)
[2024-06-06 17:23] LABS: Vitamin B1 10 nmol/L (8-30)
== END 2024-05-31 11:08 | disposition home or self-care (01) ==
LOC: HO.LAB 11:07
PROVIDERS: PCP Family Medicine; Visit Provider Physician Assistant Surgical
DX: E53.8 Deficiency of other specified B group vitamins (principal); E55.9 Vitamin D deficiency, unspecified; Z98.84 Bariatric surgery status
CPT/HCPCS: 36415; 82306; 82607; 82728; 82746; 83540; 84425; 84590; 84630; 85025; 99212

== ENCOUNTER 2025-01-16 11:57 | Outpatient (REF) | payer OTHER, SELFPAY ==
[2025-01-16 12:14] LABS: MANUAL DIFF FLAG NO
[2025-01-16 13:11] LABS: Hematocrit 33.7 % (37.0-47.0); Hemoglobin 10.8 g/dl (12.0-16.0); Imm Gran Abs Auto 0.01 X10*3/uL (0.00-0.03); Imm Gran Pct Auto 0.2 % (0.0-0.4); Lymphocytes Absolute Auto 2.9 X10*3/uL (1.2-4.9); Mean Corpuscular HGB Conc 32.0 g/dl (31.0-35.0); Mean Corpuscular Hemoglobin 26.4 pg (27.0-33.0); Mean Corpuscular Volume 82.4 fL (80.0-98.0); NRBC Abs Auto 0.000 X10*3/uL (0.0-0.012); NRBC Pct Auto 0.0 /100WBC (0.0-0.2); Platelet Count 299 X10*3/uL (160-400); Red Blood Count 4.09 X10*6/uL (4.20-5.50); White Blood Count 5.2 X10*3/uL (4.8-10.8)
[2025-01-16 13:20] LABS: Hemoglobin A1C 89.1935 umol/L; Total Hemoglobin (HGBA1C) 2832.8632 umol/L
[2025-01-16 14:06] LABS: Alanine Aminotransferase 17 U/L (0-31); Albumin Level 4.1 g/dL (3.5-5.0); Alkaline Phosphatase 38 U/L (39-117); Anion Gap 10 (12-20); Aspartate Amino Transferase 25 U/L (5-31); Blood Urea Nitrogen 10 mg/dL (9-16); Calcium 8.9 mg/dL (8.4-10.2); Carbon Dioxide 27 mmol/L (22-29); Chloride 107 mmol/L (96-108); Cholesterol 213 mg/dL (<200); Estimated Glomerular Filt Rate > 60; HDL Cholesterol 80 mg/dL (>40); Iron 43 mcg/dL (30-160); Percent Iron Saturation 12 % (15-50); Potassium 4.2 mmol/L (3.3-5.1); Sodium 140 mmol/L (135-145); Total Iron Binding Capacity 368 mcg/dL (228-428); Total Protein 7.3 g/dL (6.5-8.0); Triglycerides 55 mg/dL (<150); Unsaturated Iron Binding 325 ug/dL
[2025-01-16 14:15] LABS: Ferritin 7 ng/mL (10-122)
[2025-01-16 14:23] LABS: Folate 10.9 ng/mL (> or = 4.0); Vitamin B12 630 pg/mL (200-900)
== END 2025-01-16 11:58 | disposition home or self-care (01) ==
LOC: HO.LAB 11:57
PROVIDERS: Visit Provider Physician Assistant Surgical
DX: R73.03 Prediabetes (principal); E55.9 Vitamin D deficiency, unspecified; E53.8 Deficiency of other specified B group vitamins; Z98.84 Bariatric surgery status; Z13.6 Encounter for screening for cardiovascular disorders; Z13.21 Encounter for screening for nutritional disorder
CPT/HCPCS: 36415; 80053; 80061; 82306; 82607; 82728; 82746; 83036; 83525; 83540; 84425; 84443; 84590; 84630; 85025; 86140

== ENCOUNTER 2025-01-17 14:38 | Outpatient (AMB) | payer OTHER, SELFPAY ==
--- NOTE | 2025-01-17 14:43 | A.OFFVIS_ITS ---
VS Expanded 01/17/25 14:59 BP 110/71 Blood Pressure Location Rt brachial Blood Pressure Position Sitting Pulse 82 Pulse Source Pulse Oximeter Temp 98 F Temperature Source Temporal Artery Scan Pulse Oximetry 100 Oxygen Delivery Method Room Air Height 5 ft 1.5 in Weight 145 lb BMI 27.0 Body Fat % 31.5 Body Fat Mass 45.6 Fat Free Mass 99.2 Visceral Fat Rating 5 Body Water % 49.2 Body Water Mass 71.2 Muscle Mass/Score 94.2 Basal Metabolic Rate/Score 1,366 Intake Visit Reasons: (OV) PO LSG 08/21/21 Allergies Seasonal Allergies Allergy (Severe, Verified 01/17/25 15:07) hives,itchy eys Medication List - Last Reconciled 01/17/25 by Alex Mistry RN cyanocobalamin (vitamin B-12) 500 mcg PO DAILY pyridoxine (vitamin B6) (Vitamin B-6) 25 mg PO tid PRN 30 days vitamin A palmitate 3,000 mcg PO DAILY HPI Comments Details: This?is a?33?yo female who is s/p LSG 08/21/2021. Presents for 3year 5 month month post op visit. She had her baby 02/16/23, healthy girl. She became in May 2022. Weight today is 145 pounds, with a BMI of 26.9. There has been a 66.4 pound weight loss,(initial weight 211.4 pounds) since starting the program on 02/17/2021 reflecting a 31.4% total body weight loss and a weight loss of 46 pounds since surgery (operative weight 191 pounds) reflecting a 24% TBWL since surgery. States her goal is to lose weight to reach 130-134 pounds. Was complaining of fatigue and saw lines in her nails. Saw PCP referred to bariatrics. SHe has changed her meal plan to celebrate 4 in to avoid taking mvi for the last month. her meal plan: Celebrate 4 in , 1 scoop in 8 oz decaf coffee at 730-830 apple or peach and 1/2 ZP bar 10 am another shake at 12-1 meal not measuring protein and veg previous meal plan recommended: Premier protein powder, 1/2 scoop in 10 oz of almond milk at 7-9 am Shake half scoop 12-2 Bar, zone perfect 3-5 Meal with 7 forks of protein and 7 forks of vegetables 7 pm Drinking 64 oz water, no soda or juice. Exercise plan: just restarted 4-5 x per week gym 30-45 min weights then 30-45 min cardio treadmill 300-500 or running outside 2-3 mi. 2-3 x per week [facility] Medical History GERD (gastroesophageal reflux disease) Wears contact lenses Situational anxiety History of injury of tendon Nausea BMI 36.0-36.9,adult BMI 37.0-37.9, adult Asthma PCOS (polycystic ovarian syndrome) Prediabetes BMI 39.0-39.9,adult Surgical History (Updated 05/31/24 @ 11:16 by Bell Bruce CMA) Hx of plastic surgery S/P laparoscopic sleeve gastrectomy History of finger joint replacement History of mandibular surgery Family History Mother No problems noted. Father Diabetes Hypertension Sister No problems noted. Sister No problems noted. Sister No problems noted. Sister Lupus Brother No problems noted. Son No problems noted. Daughter No problems noted. 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 (children aged 13,9,2 to help) Do you presently have visiting nurse or other home services: No Alcohol intake: current Alcohol intake frequency: does not drink Patient Tobacco Use Status: Never used Tobacco service: No Current occupational status: employed Physical Exam Const General: healthy appearing and no acute distress Resp Effort & Inspection: normal respiratory effort Auscultation: clear to auscultation bilaterally Cardio Rate: regular rate Rhythm: regular rhythm GI Auscultation: normal bowel sounds Extrem General: Yes normal to inspection Assessment & Plan Assessment & Plan (1) S/P laparoscopic sleeve gastrectomy: Comment: 08/21/21 Code(s): Z98.84 - Bariatric surgery status Category: Surgical Plan: Recommend bariatric multivitamin every other day Recommend following the meal plan with celebrate 4 in 1, 1 scoop, half bar, another shake and a meal. Specific attention to measuring the quantity of food at her meal with 7 forks of protein and 7 forks of vegetables. Continue exercises she is doing. Patient complains of lightheadedness and has been deficient in water intake. Discussed the importance and clinical correlation of fluid intake and blood pressure. Encouraged to increase fluid intake to at least 60 oz per day. We will have her follow-up in the office as scheduled.
[2025-01-17 14:59] VITALS: BP 110/71; PULSE 82; TEMP 36.6; O2SAT 100; BMI 27.0
== END 2025-01-17 15:38 | disposition home or self-care (01) ==
LOC: HO.HBS 14:39
PROVIDERS: PCP Family Medicine; Visit Provider Physician Assistant Surgical
DX: E66.3 Overweight (principal); Z68.27 Body mass index [BMI] 27.0-27.9, adult; Z90.3 Acquired absence of stomach [part of]; Z98.84 Bariatric surgery status
CPT/HCPCS: 99213; G2211

== ENCOUNTER → 2025-01-17 14:38 | Outpatient (BNVA) | payer OTHER, SELFPAY | PROVIDERS: PCP Family Medicine; Visit Provider Physician Assistant Surgical | DX: Z98.84 Bariatric surgery status (principal) | CPT/HCPCS: 99212 ==